=== PATIENT | male | born 1955 | race Caucasian/White ===

== ENCOUNTER 2017-10-29 09:00 | Inpatient (IN) | payer OTHER ==
[2017-10-29 09:28] VITALS: BMI 33.9
[2017-11-04] MEDS ORDERED: Midazolam HCl 2 mg/2 ml Vial ONE (07:23)
[2017-11-04] MEDS ORDERED: Ropivacaine 0.5% HCl/PF (150 MG/30 ML VIAL) ONE (07:24)
[2017-11-04] MEDS ORDERED: Bupivacaine 0.25% HCL 30 ML VIAL ONE (07:24)
[2017-11-04] MEDS ORDERED: Fentanyl 100 MCG/2 ML VIAL ONE ×4 (07:24→13:24)
[2017-11-04] MEDS ORDERED: CEFAZOLIN/Water 2 GM/20 ML SYRINGE ONE (08:09)
[2017-11-04] MEDS ORDERED: Zolpidem Tartrate 5 MG TAB PO PRN ×2 (08:50→09:21)
[2017-11-04] MEDS ORDERED: Ondansetron HCl/PF 4 MG/2 ML Vial IVP PRN ×3 (08:50→12:44)
[2017-11-04] MEDS ORDERED: traMADol HCl 50 MG TAB PO PRN ×3 (08:50→09:21)
[2017-11-04] MEDS ORDERED: Promethazine HCl 25 MG/ML VIAL IM PRN ×3 (08:50→12:44)
[2017-11-04] MEDS ORDERED: HYDROcodone/Acetaminophen 10/325 mg Tablet PO PRN ×3 (08:50→09:21)
[2017-11-04] MEDS ORDERED: Fentanyl 100 MCG/2 ML VIAL IV PRN (08:51)
[2017-11-04] MEDS ORDERED: diphenhydrAMINE 25 MG CAP PO PRN (09:21)
[2017-11-04] MEDS ORDERED: Acetaminophen 325 MG TAB PO PRN (09:21)
[2017-11-04] MEDS ORDERED: Acetaminophen 1,000 MG in Premix Bag 1 BAG IVPB SCH (09:30)
[2017-11-04] MEDS ORDERED: PROPOFOL 20 ML ONE ×2 (10:24→10:25)
[2017-11-04] MEDS ORDERED: Propofol 500 MG/50 ML VIAL ONE ×3 (10:24→12:12)
[2017-11-04] MEDS ORDERED: Bupivacaine/Epinephrine 0.25% 30 ML VIAL ONE (10:26)
[2017-11-04] MEDS ORDERED: Neomycin-Polymyxin 1 ML AMP ONE (10:26)
[2017-11-04] MEDS: Ketorolac Tromethamine 30 MG/ML VIAL IVP SCH ×5 (12:00→23:29)
[2017-11-04] MEDS ORDERED: PROPOFOL 200 MG/20 ML VIAL ONE (12:16)
[2017-11-04] MEDS ORDERED: Non-Formulary Item 1 EACH (Esomeprazole Magnesium [Nexium] 20 MG) PO PRN (12:33)
[2017-11-04] MEDS ORDERED: Promethazine HCl 25 MG/ML VIAL SLOW IVP PRN (12:44)
[2017-11-04] MEDS ORDERED: Tranexamic Acid 1,000 MG in Sodium Chloride 0.9% 100 ML IVPB SCH (12:45)
--- NOTE | 2017-11-04 14:04 | RAD ---
RIGHT KNEE TWO VIEWS: History: Total knee arthroplasty. Post op evaluation. FINDINGS/IMPRESSION: There are recent post-operative changes of total knee arthroplasty in good position and alignment. So ft tissue air and surgical clips are present. POS: SCOTTY
[2017-11-04] MEDS ORDERED: hydrALAZINE 20 MG/ML VIAL SLOW IVP PRN (14:50)
[2017-11-04] MEDS: Sodium Chloride 0.9% 1,000 ML IV SCH ×2 (15:26→20:12)
[2017-11-04] MEDS: CEFAZOLIN/Water 2 GM/20 ML SYRINGE SLOW IVP SCH ×2 (16:15→23:29)
[2017-11-04] MEDS: metFORMIN 500 MG TAB PO SCH (17:15)
[2017-11-04] MEDS: Aspirin 81 mg Enteric Coated Tablet PO SCH (20:13)
[2017-11-04] MEDS: Ferrous Gluconate 324 MG TAB PO SCH (20:14)
[2017-11-04] MEDS: Atorvastatin Calcium 10 MG TAB PO SCH (20:14)
[2017-11-04] MEDS: Senokot S 8.6-50 MG TAB PO SCH (20:14)
[2017-11-04] MEDS: Lisinopril 10 MG TAB PO SCH (20:15)
[2017-11-04] MEDS: HYDROcodone/Acetaminophen 10/325 mg Tablet PO PRN (20:15)
[2017-11-04] MEDS ORDERED: Lisinopril 10 MG TAB PO SCH (21:00)
[2017-11-04] MEDS: Bupivacaine 0.5% 50 ML in Sodium Chloride 0.9% 50 ML NERVE BLCK SCH (23:29)
[2017-11-05] MEDS: Ketorolac Tromethamine 30 MG/ML VIAL IVP SCH ×6 (03:41→21:19)
[2017-11-05] MEDS: Sodium Chloride 0.9% 1,000 ML IV SCH ×2 (04:58→14:31)
[2017-11-05 05:10] LABS: Hemoglobin 12.7 g/dL (14.0-18.0); Mean Corpuscular HGB CONC 33.8 g/dL (32.0-36.0); Mean Corpuscular Hemoglobin 31.6 pg (27.0-31.0); Mean Corpuscular Volume 93.5 fl (80.0-94.0); Mean Platelet Volume 6.6 fL (7.4-10.4); Platelet Count 207 thou/uL (130-400); RBC Distribution Width 11.2 % (11.5-14.5); Red Blood Cell (RBC) Count 4.03 mill/uL (4.70-6.10); White Blood Cell (WBC) Count 8.8 thou/uL (4.8-10.8)
[2017-11-05] MEDS: Senokot S 8.6-50 MG TAB PO SCH ×2 (08:14→21:20)
[2017-11-05] MEDS: Ferrous Gluconate 324 MG TAB PO SCH ×2 (08:14→21:20)
[2017-11-05] MEDS: metFORMIN 500 MG TAB PO SCH ×2 (08:14→18:06)
[2017-11-05] MEDS: Multivitamin W/ Minerals 1 TAB PO SCH (08:14)
[2017-11-05] MEDS: Aspirin 81 mg Enteric Coated Tablet PO SCH ×2 (08:14→21:21)
--- NOTE | 2017-11-05 10:01 | OP ---
DATE OF PROCEDURE: 11/04/2017 PREOPERATIVE DIAGNOSIS: Osteoarthritis, right knee. POSTOPERATIVE DIAGNOSIS: Osteoarthritis, right knee. PROCEDURE: Right total knee arthroplasty. ANESTHESIA: General. SURGEON: Dr. Tree Bray RN ASSESSMENT: HERNAN Beltrán. COMPLICATIONS: None. CONDITION: Good. ESTIMATED BLOOD LOSS: Minimal. DRAINS: None. TOURNIQUET: Per anesthesia. TECHNIQUE: Consent obtained. The patient was taken to the operating room and placed in supine posit ion. After adequate general anesthesia achieved, the patient's right knee was examined. He had flex ion up to 135 degrees, full extension. There was crepitus with motion, moderate effusion. Ligament exam was stable. Mild varus deformity. He was then positioned, prepped and draped in the usual ster ile fashion. Tourniquet placed to right upper thigh. Leg was elevated, exsanguinated, and tournique t inflated prior to incision. Standard midline vertical incision was made, extending to subcutaneous tissue exposing extensor mechanism. Medial parapatellar arthrotomy was performed. Patella subluxed laterally. The patient had advanced tricompartmental disease with areas of grade III and IV changes on the medial compartment, grade II and III lateral and patellofemoral. Using intramedullary guide, distal 5 degree valgus resection on the femur was performed using AP and epicondylar axis, proper ro tation, position, a size 7 cutting block was placed. Anterior, posterior chamfer cuts were completed for the size 7 evolution femur. The tibia was then subluxed anteriorly. Appropriate resection was performed using external guide. Menisci and cruciate ligaments debrided and flexion, extension gaps were then checked with the 10 mm spacer. Good balancing and alignment noted. Patella was then measu red and approximately 8 mm resection was performed, a 35 mm patella was medialized. The trial compon ents were then placed, 7 femur, 7 tibia, and 35 patella and put through range of motion with a 10 mm bearing surface. The baseplate was then marked and prepared with a broach. All surfaces were irriga maria g copiously, dried. Femur, tibia, and patella cemented. Excess cement removed and again trialed w ith the 10 mm bearing surface. This was chosen, snap fit. The knee was then irrigated copiously. A rthrotomy closed with #2 mersilene, #1 Vicryl, subq with 0 and 2-0 Vicryl, and skin with madison. St erile bulky dressing was applied and patient taken to recovery. Begin rehab protocol. Prognosis is good. HERNAN Beltrán was essential in the procedure. He has special training in orthopedic implant, surgic al techniques and retraction along with closure and transfer of the patient.
[2017-11-05] MEDS: HYDROcodone/Acetaminophen 10/325 mg Tablet PO PRN (12:59)
[2017-11-05] MEDS: Bupivacaine 0.5% 50 ML in Sodium Chloride 0.9% 50 ML NERVE BLCK SCH (13:07)
--- NOTE | 2017-11-05 19:52 | PDOC.PN ---
- Subjective Encounter Start Date: 11/05/17 Encounter Start Time: 19:51 Patient seen and examined for Med mngt. No new complaints. No overnight events. Pain controlled. - Objective MAR Reviewed: Yes Vital Signs & Weight: Vital Signs (12 hours) Temp Pulse Resp BP BP Pulse Ox 11/05/17 16:00 97.8 F 56 L 18 125/75 95 11/05/17 12:00 98.7 F 57 L 18 116/74 98 11/05/17 08:00 98.5 F 58 L 20 120/78 97 Weight Admit Weight 243 lb Weight 243 lb I&O: 11/04/17 11/05/17 11/06/17 06:59 06:59 06:59 Intake Total 1740 1110 Output Total 800 800 Balance 940 310 Result Diagrams: 11/05/17 04:42 Additional Labs: Laboratory Tests 03/26/16 10/29/17 08:49 12:11 Creatinine 0.81 Triglycerides 170 H Cholesterol 150 LDL Cholesterol, Calc 82 EKG Reviewed by me: Yes (SR) Phys Exam - Physical Examination Constitutional: NAD Respiratory: no wheezing, no rhonchi Cardiovascular: RRR, no rub Gastrointestinal: soft, non-tender, positive bowel sounds Musculoskeletal: no edema Neurological: moves all 4 limbs Dx/Plan (1) DM2 (diabetes mellitus, type 2) Status: Chronic Plan: Cont Metformin. No need for sliding scale. (2) HTN (hypertension) Code(s): I10 - ESSENTIAL (PRIMARY) HYPERTENSION Status: Chronic Plan: Cont Lisinopril (3) GERD (gastroesophageal reflux disease) Code(s): K21.9 - GASTRO-ESOPHAGEAL REFLUX DISEASE WITHOUT ESOPHAGITIS Status: Chronic Plan: Cont PPI (4) Obesity (BMI 30.0-34.9) Code(s): E66.9 - OBESITY, UNSPECIFIED Status: Chronic (5) Dyslipidemia Code(s): E78.5 - HYPERLIPIDEMIA, UNSPECIFIED Status: Chronic Plan: Cont Statins - Plan PT/OT, DVT proph w/SCDs Thank you for this consultation. Will follow. Review of Systems - Review of Systems Respiratory: negative: Cough, Dry, Shortness of Breath, Hemoptysis, SOB with Excertion, Pleuritic Pain, Sputum, Wheezing Cardiovascular: negative: chest pain, palpitations, orthopnea, paroxysmal nocturnal dyspnea, edema, light headedness, other Gastrointestinal: negative: Nausea, Vomiting, Abdominal Pain, Diarrhea, Constipation, Melena, Hematochezia, Other - Medications/Allergies Allergies/Adverse Reactions: Allergies Allergy/AdvReac Type Severity Reaction Status Date / Time No Known Allergies Allergy Verified 11/04/17 16:04 Medications: Current Medications Acetaminophen (Tylenol) 650 mg PO Q4H PRN PRN Reason: VALADEZ/ T > 101F; Mild Pain (1-3) Hydrocodone Bitart/Acetaminophen (Deloit 10/325) 1 tab PO Q4H PRN PRN Reason: Moderate Pain (4-6) Last Admin: 11/05/17 09:02 Dose: 1 tab Hydrocodone Bitart/Acetaminophen (Deloit 10/325) 2 tab PO Q4H PRN PRN Reason: Severe Pain (7-10) Last Admin: 11/05/17 12:59 Dose: 2 tab Aspirin (Ecotrin) 81 mg PO BID [facility] Last Admin: 11/05/17 08:14 Dose: 81 mg Atorvastatin Calcium (Lipitor) 10 mg PO HS [facility] Last Admin: 11/04/17 20:14 Dose: 10 mg Diphenhydramine HCl (Benadryl) 25 mg PO Q6H PRN PRN Reason: Itching Fentanyl (Sublimaze) 50 mcg IV Q1H PRN PRN Reason: BT PAIN Ferrous Gluconate (Fergon) 324 mg PO BID [facility] Last Admin: 11/05/17 08:14 Dose: 324 mg Hydralazine HCl (Apresoline) 10 mg SLOW IVP Q4H PRN PRN Reason: SBP Greater Than 180 Bupivacaine HCl 50 ml/ Sodium (Chloride) 100 mls @ 0 mls/hr NERVE BLCK INF [facility] PRN Reason: As Directed Last Admin: 11/05/17 13:07 Dose: 100 mls Sodium Chloride (Normal Saline 0.9%) 1,000 mls @ 100 mls/hr IV .Q10H [facility] Last Admin: 11/05/17 14:31 Dose: Not Given Iron/Minerals/Multivitamins (Theragran M) 1 tab PO DAILY [facility] Last Admin: 11/05/17 08:14 Dose: 1 tab Ketorolac Tromethamine (Toradol) 30 mg IVP Q6HR [facility] Stop: 11/06/17 06:01 Last Admin: 11/05/17 18:06 Dose: 30 mg Ketorolac Tromethamine (Toradol) 15 mg IVP Q8HR [facility] Stop: 11/06/17 14:01 Last Admin: 11/05/17 13:20 Dose: Not Given Lisinopril (Zestril) 10 mg PO HS [facility] Last Admin: 11/04/17 20:15 Dose: Not Given Metformin HCl (Glucophage) 500 mg PO BID[facility] Last Admin: 11/05/17 18:06 Dose: 500 mg Morphine Sulfate (Morphine) 2 mg IVP Q2H PRN PRN Reason: Moderate Pain (4-6) Morphine Sulfate (Morphine) 4 mg IVP Q2H PRN PRN Reason: Severe Pain (7-10) Ondansetron HCl (Zofran) 4 mg IVP Q6H PRN PRN Reason: Nausea/Vomiting Pantoprazole Sodium (Protonix) 40 mg PO DAILYPRN PRN PRN Reason: GERD Promethazine HCl (Phenergan) 12.5 mg IM Q4H PRN PRN Reason: Nausea/Vomiting Last Admin: 11/05/17 08:13 Dose: 12.5 mg Senna/Docusate Sodium (Senokot S) 2 tab PO BID [facility] Last Admin: 11/05/17 08:14 Dose: 2 tab Sodium Chloride (Flush - Normal Saline) 10 ml IVF PRN PRN PRN Reason: Saline Flush Tramadol HCl (Ultram) 100 mg PO Q6H PRN PRN Reason: Mild Pain (1-3) Zolpidem Tartrate (Ambien) 5 mg PO HSPRN PRN PRN Reason: Insomnia
[2017-11-05] MEDS: Atorvastatin Calcium 10 MG TAB PO SCH (21:20)
[2017-11-05] MEDS: Lisinopril 10 MG TAB PO SCH (21:21)
[2017-11-06] MEDS: Bupivacaine 0.5% 50 ML in Sodium Chloride 0.9% 50 ML NERVE BLCK SCH (00:56)
[2017-11-06] MEDS: HYDROcodone/Acetaminophen 10/325 mg Tablet PO PRN ×2 (00:56→09:18)
[2017-11-06] MEDS: Ketorolac Tromethamine 30 MG/ML VIAL IVP SCH ×3 (00:57→06:17)
[2017-11-06] MEDS: Sodium Chloride 0.9% 1,000 ML IV SCH (02:14)
[2017-11-06 05:07] LABS: Hemoglobin 12.5 g/dL (14.0-18.0); Mean Corpuscular HGB CONC 33.3 g/dL (32.0-36.0); Mean Corpuscular Volume 93.1 fl (80.0-94.0); Mean Platelet Volume 7.1 fL (7.4-10.4); Platelet Count 211 thou/uL (130-400); RBC Distribution Width 11.2 % (11.5-14.5); Red Blood Cell (RBC) Count 4.03 mill/uL (4.70-6.10); White Blood Cell (WBC) Count 9.2 thou/uL (4.8-10.8)
[2017-11-06 08:01] VITALS: BP 144/85; TEMP 98
[2017-11-06] MEDS ORDERED: FOLATE PO SCH (09:00)
[2017-11-06] MEDS ORDERED: Non-Formulary Item 1 EACH (Cholecalciferol (Vitamin D3) [Vitamin D3] 5,000 UNIT) PO SCH (09:00)
[2017-11-06] MEDS ORDERED: INTRINSIC FACT PO SCH (09:00)
[2017-11-06] MEDS ORDERED: VIT B12 PO SCH (09:00)
[2017-11-06] MEDS ORDERED: [UNRECOGNIZED DRUG - OTHER] PO SCH (09:00)
[2017-11-06] MEDS: metFORMIN 500 MG TAB PO SCH (09:02)
[2017-11-06] MEDS: Ferrous Gluconate 324 MG TAB PO SCH (09:03)
[2017-11-06] MEDS: Aspirin 81 mg Enteric Coated Tablet PO SCH (09:03)
[2017-11-06] MEDS: Multivitamin W/ Minerals 1 TAB PO SCH (09:04)
[2017-11-06] MEDS: Senokot S 8.6-50 MG TAB PO SCH (09:04)
--- NOTE | 2017-11-06 13:10 | PDOC.PN ---
- Subjective Encounter Start Date: 11/06/17 Encounter Start Time: 07:30 Patient iss een today, alert and oriented. Ready to get discharge. - Objective MAR Reviewed: Yes Vital Signs & Weight: Vital Signs (12 hours) Temp Pulse Resp BP Pulse Ox 11/06/17 08:00 98 F 55 L 16 93 L 11/06/17 07:38 98 F 55 L 16 144/85 H 93 L 11/06/17 04:00 98.2 F 58 L 16 129/71 95 Weight Admit Weight 243 lb Weight 243 lb I&O: 11/05/17 11/06/17 11/07/17 06:59 06:59 06:59 Intake Total 1740 1350 540 Output Total 800 2000 300 Balance 940 -650 240 Result Diagrams: 11/06/17 04:11 Phys Exam - Physical Examination HEENT: PERRLA, moist MMs Neck: no nodes, no JVD Respiratory: no wheezing, no rales Cardiovascular: RRR, no significant murmur Gastrointestinal: soft, non-tender Musculoskeletal: no edema Dx/Plan (1) DM2 (diabetes mellitus, type 2) Status: Chronic Comment: stba;e, continue Home Meds. (2) Dyslipidemia Code(s): E78.5 - HYPERLIPIDEMIA, UNSPECIFIED Status: Chronic Comment: continue Home emds. stbale. (3) GERD (gastroesophageal reflux disease) Code(s): K21.9 - GASTRO-ESOPHAGEAL REFLUX DISEASE WITHOUT ESOPHAGITIS Status: Chronic Comment: Asymptomatic, continue Home meds. (4) HTN (hypertension) Code(s): I10 - ESSENTIAL (PRIMARY) HYPERTENSION Status: Chronic Comment: at Goal. continue home meds (5) Obesity (BMI 30.0-34.9) Code(s): E66.9 - OBESITY, UNSPECIFIED Status: Chronic - Plan cont current plan of care, PT/OT, incentive spirometry, DVT proph w/SCDs * . Review of Systems - Review of Systems Constitutional: negative: fever, chills, sweats, weakness, malaise, other Eyes: negative: Pain, Vision Change, Conjunctivae Inflammation, Eyelid Inflammation, Redness, Other ENT: negative: Ear Pain, Ear Discharge, Nose Pain, Nose Discharge, Nose Congestion, Mouth Pain, Mouth Swelling, Throat Pain, Throat Swelling, Other Respiratory: negative: Cough, Dry, Shortness of Breath, Hemoptysis, SOB with Excertion, Pleuritic Pain, Sputum, Wheezing Cardiovascular: negative: chest pain, palpitations, orthopnea, paroxysmal nocturnal dyspnea, edema, light headedness, other Gastrointestinal: negative: Nausea, Vomiting, Abdominal Pain, Diarrhea, Constipation, Melena, Hematochezia, Other Genitourinary: negative: Dysuria, Frequency, Incontinence, Hematuria, Retention , Other - Medications/Allergies Allergies/Adverse Reactions: Allergies Allergy/AdvReac Type Severity Reaction Status Date / Time No Known Allergies Allergy Verified 11/04/17 16:04
== END 2017-11-06 11:30 | disposition home or self-care (01) | DRG 470 ==
LOC: SJJU 11-04 06:52
PROVIDERS: ADMIT Orthopaedic Surgery; ATTEND Orthopaedic Surgery
PROC: 0SRC0J9 Replacement of Right Knee Joint with Synthetic Substitute, Cemented, Open Approach (ICD-10-PCS; principal; 2017-11-04)
DX: M17.11 Unilateral primary osteoarthritis, right knee (principal); E11.9 Type 2 diabetes mellitus without complications; E78.5 Hyperlipidemia, unspecified; K21.9 Gastro-esophageal reflux disease without esophagitis; I10 Essential (primary) hypertension; E66.9 Obesity, unspecified; Z68.33 Body mass index [BMI] 33.0-33.9, adult
CPT/HCPCS: 36415; 85027; C1713; C1776; G8978-GP-CJ; G8979-GP-CI; J1885; J2250; J2550; J2704; J2795; J3010; J3370; J3490; J7050; S0020

== ENCOUNTER 2017-10-29 09:32 | Outpatient (CLI) | payer OTHER ==
[2017-10-29 12:40] LABS: PTT 28.6 SEC (22.9-36.1); Prothrombin Time 13.2 SEC (12.0-14.7)
[2017-10-29 12:43] LABS: Hemoglobin 14.9 g/dL (14.0-18.0); Mean Corpuscular HGB CONC 31.9 g/dL (32.0-36.0); Mean Corpuscular Hemoglobin 29.9 pg (27.0-31.0); Mean Corpuscular Volume 93.6 fl (80.0-94.0); Mean Platelet Volume 6.7 fL (7.4-10.4); Platelet Count 273 thou/uL (130-400); RBC Distribution Width 11.2 % (11.5-14.5); White Blood Cell (WBC) Count 5.9 thou/uL (4.8-10.8)
[2017-10-29 12:59] LABS: Anion Gap 11 mmol/L (10-20); BUN (Urea Nitrogen) 13 mg/dL (8.4-25.7); Calc. Creatinine Clearance 0 mL/min (70-130); Calcium 9.5 mg/dL (7.8-10.44); Carbon Dioxide 26 mmol/L (23-31); Chloride 103 mmol/L (98-107); Estimated GFR-MDRD Greater than 90; Glucose 98 mg/dL (80-115); Potassium 4.4 mmol/L (3.5-5.1); Sodium 136 mmol/L (136-145)
== END 2017-10-29 09:33 | disposition home or self-care (01) ==
LOC: LABBT 09:32
PROVIDERS: ATTEND Orthopaedic Surgery
DX: Z01.818 Encounter for other preprocedural examination (principal); M17.11 Unilateral primary osteoarthritis, right knee
CPT/HCPCS: 80048; 85027; 85610; 85730; 86850; 86900; 86901; 87081; 93005; 93010

== ENCOUNTER 2018-04-25 15:03 | Inpatient (IN) | payer OTHER ==
[2018-04-25 15:35] LABS: #Basophils 0.1 thou/uL (0.0-0.2); #Eosinphils 0.2 thou/uL (0.0-0.7); #Lymphocytes 2.9 thou/uL (1.20-3.40); #Neutrophils 6.5 thou/uL (1.40-6.50); %Basophils 0.5 % (0.0-1.0); %Eosinophils 1.9 % (0.0-10.0); %Lymphocytes 27.1 % (21.0-51.0); %Monocytes 9.3 % (0.0-10.0); %Neutrophils 61.2 % (42.0-75.0); Hemoglobin 13.1 g/dL (14.0-18.0); Mean Corpuscular Hemoglobin 31.6 pg (27.0-31.0); Mean Corpuscular Volume 92.9 fL (78.0-98.0); Mean Platelet Volume 7.1 fL (7.4-10.4); Platelet Count 242 thou/uL (130-400); RBC Distribution Width 11.4 % (11.5-14.5); Red Blood Cell (RBC) Count 4.14 mill/uL (4.70-6.10); White Blood Cell (WBC) Count 10.5 thou/uL (4.8-10.8)
[2018-04-25 16:09] LABS: CKMB 0.5 ng/mL (0-6.6); Troponin I Less than 0.010 ng/mL (< 0.028)
[2018-04-25 16:12] LABS: ALT (SGPT) 11 U/L (8-55); AST (SGOT) 12 U/L (5-34); Albumin 3.7 g/dL (3.4-4.8); Alkaline Phosphatase 49 U/L (40-150); Anion Gap 12 mmol/L (10-20); BUN (Urea Nitrogen) 12 mg/dL (8.4-25.7); Bilirubin, Total 0.8 mg/dL (0.2-1.2); CK (CPK) 31 U/L (30-200); Calc. Creatinine Clearance 0 mL/min (70-130); Calcium 9.3 mg/dL (7.8-10.44); Carbon Dioxide 29 mmol/L (23-31); Chloride 100 mmol/L (98-107); Estimated GFR-MDRD Greater than 90; Globulin 3.1 g/dL (2.4-3.5); Glucose 110 mg/dL (80-115); Potassium 4.6 mmol/L (3.5-5.1); Protein, Total 6.8 g/dL (5.8-8.1); Sodium 136 mmol/L (136-145)
[2018-04-25] MEDS ORDERED: Iopamidol 370 76% 100 ML VIAL ONE (16:20)
[2018-04-25] MEDS ORDERED: Ondansetron PF 4 MG/2 ML Vial ONE (16:36)
[2018-04-25] MEDS ORDERED: Morphine 4 MG/ML VIAL ONE (16:36)
--- NOTE | 2018-04-25 16:41 | RAD ---
PORTABLE CHEST ONE VIEW: 04/25/18 at 3:55 p.m. HISTORY: Sternal chest pain, shortness of breath. FINDINGS/IMPRESSION: The heart size is borderline. Plates of atelectatic change are seen in the lower lung patrick. No foca l areas of consolidation, pneumothoraces, grabiel pulmonary edema or pleural effusions are identified. POS: H
[2018-04-25] MEDS ORDERED: Heparin 25,000 units/D5W 500 ML IV SCH (17:45)
[2018-04-25] MEDS ORDERED: Heparin 10,000 UNITS/ 10 ML VIAL SLOW IVP SCH (17:45)
[2018-04-25] MEDS ORDERED: Heparin 1,000 UNITS/ML VIAL ONE (17:47)
[2018-04-25] MEDS ORDERED: Heparin 25,000 units/D5W 500 ML ONE (17:50)
--- NOTE | 2018-04-25 19:01 | PDOC.LDHP ---
Labor and Delivery H&P Allergies/Adverse Reactions: Allergies Allergy/AdvReac Type Severity Reaction Status Date / Time No Known Allergies Allergy Verified 11/04/17 16:04
--- NOTE | 2018-04-25 19:03 | PDOC.FPRHP ---
- History of Present Illness Chief Complaint: SOB and chest pain History of Present Illness: The patient is a 62YOM w/ a PMH significant for DMII & HTN as well as a recent left TKR on 04/22, who presented to the ED with a chief complaint of SOB and chest pain that he reportedly experienced for about 1 hour around 10:30- 11 AM. The patient reported that he was sitting at home this morning and had sudden onset sharp, central, non-radiating chest pain with associated SOB, diaphoresis, and nausea. He reports no aggravating or alleviating factors although he did try taking Tums as he thought it might have been gas pain. However, the tums did not help so his called EMS to come an evaluate him. The patient says that his symptoms persisted for about an hour and then resolved spontaneously and his stated that EMS was able to determine that the pain was not cardiac in nature. However, the patient decided to call his orthopedic surgeon, Dr. Bray to get advise on what to do and Dr. Bray recommended that the patient proceed to the ED for further evaluation. The patient denied any associated weakness, numbness, syncope, or palpitations. He also denied any worsening left leg swelling or pain. ED Course: ED: 4mg zofran and morphine IV, 324mg ASA, 80mg/kr dose of IV heparin, 1L of NS ; started on heparin drip - Allergies/Adverse Reactions Allergies Allergy/AdvReac Type Severity Reaction Status Date / Time No Known Allergies Allergy Verified 11/04/17 16:04 - Home Medications Medication Instructions Recorded Confirmed Type Atorvastatin Calcium 10 mg PO HS 10/29/17 04/25/18 History Cholecalciferol (Vitamin D3) 5,000 unit PO DAILY 10/29/17 04/25/18 History [Vitamin D3] Lisinopril 10 mg PO DAILY 10/29/17 04/25/18 History metFORMIN [Glucophage] 500 mg PO BID-WM 10/29/17 04/25/18 History Vit B12/Intrinsic Fact/Folate 1 tablet PO DAILY 11/04/17 04/25/18 History [Intrinsi Q52-Eflpiv] HYDROcodone/Acetaminophen [[place]ependence 1 - 2 tab PO Q6H PRN #40 tablet 11/05/17 Rx 7.5-325 Tablet] Aspirin [Aspirin Chewable Tablet] 81 mg PO BID 04/25/18 04/25/18 History Methylsulfonylmethane [MSM] 1,000 mg PO BID 04/25/18 04/25/18 History Ondansetron HCl [Zofran] 8 mg PO BID 04/25/18 04/25/18 History - History PMHx: DMII, HTN PSHx: right TKR on 11/05/17 & left TKR on 04/22/18 FHx: Mother- CAD Father- DMII & CAD Brother - from an [place] at age 67 Social: Lives at home in [place] with his . Drinks socially. Denies any tobacco or drug use. - Review of Systems General: denies: fever/chills, weight/appetite/sleep changes Eyes: denies: eye pain, vision changes ENT: reports: other (no sore throat). denies: nasal congestion Respiratory: reports: shortness of breath. denies: cough, congestion Cardiovascular: reports: chest pain. denies: palpitation, edema Gastrointestinal: reports: nausea. denies: vomiting, diarrhea, constipation, abdominal pain Genitourinary: reports: other (no frequency). denies: dysuria Skin: denies: rashes, itching Musculoskeletal: reports: pain. denies: tenderness, swelling Neurological: denies: numbness, syncope, weakness Psychological: denies: anxiety, depression - Vital signs BP: 112/67 HR: 78 RR: 16 Tmax: 98F Pox: 98% on RA Wt: 113 kg - Physical Exam Constitutional: NAD, awake, alert and oriented, well developed HEENT: normocephalic and atraumatic, conjunctiva clear, grossly normal vision, grossly normal hearing Neck: supple, FROM Chest: no-tender to palpation Heart: RRR, normal S1/S2, no murmurs/rubs/gallops, pulses present, no edema Lungs: CTAB, no respiratory distress, good air movement, no rales/rhonchi, no wheezing Abdomen: soft, non-tender, bowel sounds present Musculoskeletal: normal structure Neurological: no focal deficit, other (swelling in LLE compared to the right but no exquisite TTP; neurovascularly intact distal to surgical incision area) -Neurological: symmetric facial movements Skin: no rash/lesions, good turgor Heme/Lymphatic: no unusual bruising or bleeding Psychiatric: normal mood and affect, good judgment and insight, intact recent and remote memory FMR H&P: Results - Labs Result Diagrams: 04/26/18 05:34 04/25/18 15:27 Lab results: WBC 10.5 thou/uL (4.8-10.8) 04/25/18 15:27 Hgb 13.1 g/dL (14.0-18.0) L 04/25/18 15:27 Hct 38.4 % (42.0-52.0) L 04/25/18 15:27 MCV 92.9 fL (78.0-98.0) 04/25/18 15:27 Plt Count 242 thou/uL (130-400) 04/25/18 15:27 Neutrophils % 61.2 % (42.0-75.0) 04/25/18 15:27 Sodium 136 mmol/L (136-145) 04/25/18 15:27 Potassium 4.6 mmol/L (3.5-5.1) 04/25/18 15:27 Chloride 100 mmol/L (98-107) 04/25/18 15:27 Carbon Dioxide 29 mmol/L (23-31) 04/25/18 15:27 BUN 12 mg/dL (8.4-25.7) 04/25/18 15:27 Creatinine 0.85 mg/dL (0.6-1.3) 04/25/18 15:27 Glucose 110 mg/dL (80-115) 04/25/18 15:27 Calcium 9.3 mg/dL (7.8-10.44) 04/25/18 15:27 Total Bilirubin 0.8 mg/dL (0.2-1.2) 04/25/18 15:27 AST 12 U/L (5-34) 04/25/18 15:27 ALT 11 U/L (8-55) 04/25/18 15:27 Alkaline Phosphatase 49 U/L (40-150) 04/25/18 15:27 Creatine Kinase 31 U/L (30-200) 04/25/18 15:27 CK-MB (CK-2) 0.5 ng/mL (0-6.6) 04/25/18 15:27 Serum Total Protein 6.8 g/dL (5.8-8.1) 04/25/18 15:27 Albumin 3.7 g/dL (3.4-4.8) 04/25/18 15:27 - Radiology Interpretation CT scan - chest Status: report reviewed by me FMR H&P: A/P - Problem List (1) Pulmonary emboli Current Visit: Yes Status: Acute Code(s): I26.99 - OTHER PULMONARY EMBOLISM WITHOUT ACUTE COR PULMONALE Qualifiers: Chronicity: acute (2) Deep vein thrombophlebitis of right leg Current Visit: Yes Status: Acute Code(s): I80.201 - PHLBTS AND THOMBOPHLB OF UNSP DEEP VESSELS OF R LOW EXTREM (3) DM2 (diabetes mellitus, type 2) Current Visit: Yes Status: Chronic Comment: stba;e, continue Home Meds. (4) HTN (hypertension) Current Visit: Yes Status: Chronic Code(s): I10 - ESSENTIAL (PRIMARY) HYPERTENSION Comment: at Goal. continue home meds (5) Obesity (BMI 30.0-34.9) Current Visit: Yes Status: Chronic Code(s): E66.9 - OBESITY, UNSPECIFIED (6) Dyslipidemia Current Visit: Yes Status: Chronic Code(s): E78.5 - HYPERLIPIDEMIA, UNSPECIFIED Comment: continue Home emds. stbale. - Plan 62YO gentleman with a recent left TKR on 04/22, DMII, & HTN who presented to the ED after an hour long episode of chest pain and SOB earlier today who was found to have DVTs in his left superficial femoral and popliteal veins & pulmonary emboli in his B/L upper lung lobes and left lower lobe as well on U/S and chest CTA. Pulmonary Emboli 2/2 left DVTs: - DVTs in left superficial femoral and popliteal veins found on U/S of LLE & PEs in B/L upper lung lobes as well as LLL on CTA of chest. - S/p Heparin bolus in the ED. Heparin drip was also started in the ED at a rate of 40.7mL or 2,000 units/hour. - Will continue on heparin drip overnight and consider transitioning to NOAC in the AM or on Saturday. - Will continue compression stocking in RLE. DMII: - Aware, will resume home meds. - Will also start on mild SSI and get ACHS accuchecks. - CC diet. HTN: - Aware, will resume home meds. HLD: - Aware, will resume home meds. h/o recent left TKR: - Will resume home pain regimen as prescribed by patient's orthopedist, Dr. Bray. - Will resume zofran as well for nausea 2/2 pain meds. FMR H&P: Upper Level - Pertinent history 62 yo M with PMHx DM, HTN who presented to ED POD#3 from TKR with acute onset shortness of breath. He had been feeling well from surgery apart form expected post op pain and was sitting comfortably today when he suddenly had central chest pain and shortness of breath. He thought it may be heartburn and took some tums and the pain resolved after approximately an hour. By that time they had called EMS who performed EKG which they were told was normal and gave them the option for a ride to hospital or to drive separately. They called Dr. Bray's office and he advised them to go directly to ER. - Pertinent findings EKG NSR CTA + partially occlusive thrombus in RUL, JASON, LLL LLE doppler + nonocclusive DVT in L superficial femoral vein and popliteal vein VSS Gen: awake, alert, oriented HEENT: atraumatic, normocephalic CV: RRR, no murmur noted, pulses 1+ throughout RESP: CTAB ABD: soft, nontender, nondistended, normoactive bowel sounds LLE: bandage from mid-thigh to mid-long without drainage, diffuse nonpitting edema of LLE - Plan Date/Time: 04/25/18 1903 62 yo M with PMHx DM, HTN and recent L TKR on 04/22 found to have DVT/PE 1. BL PE: Heparin bolus given in ED. Will continue heparin drip. Monitor on telemetry. Cardiac enzymes negative. Consider transition ton NOAC. Compression stocking on RLE. 2. DVT: Same mgmt as #1 3. POD #3: Dr. Bray aware patient is here 4. HTN: Home meds 5. T2DM: Home meds, mild SSI, accuchecks I, Netta Hutchinson MD, PGY-3, have evaluated this patient and agree with findings/ plan as outlined by trestle mainternance laborer resident. Pertinent changes/additions are listed here. Attending Addendum - Attending Addendum Date/Time: 04/25/18 356 I personally evaluated the patient and discussed the management with Dr. Clark. I agree with the History, Examination, Assessment and Plan documented above with any addition or exceptions noted below. The patient presented with left lower extremity swelling and chest pain following left knee replacement 3 days prior. He is found to have LLE DVT and bilateral PE's. Patient willl remain on heparin drip overnight. Pt will have PT/OT continued. Continue home meds. Not requiring oxygen in the ER.
[2018-04-25 19:08] LABS: Troponin I Less than 0.010 ng/mL (< 0.028)
--- NOTE | 2018-04-25 19:38 | CT ---
CTA OF THE THORAX UTILIZING IV CONTRAST AND 3D REFORMATTED IMAGIN04/25/18 INDICATION: Substernal chest pain. FINDINGS: There is partially occlusive thrombus within the lobar and segmental branches left upper lobe, left l ower lobe and right upper lobe. There is no evidence of heart stain. There is small bilateral pleural effusion, bibasilar atelectasis. There is wall thickening involving the mid to distal esophagus. No pneumothorax is evident. No confluent air space opacity is noted. No lymphadenopathy is evident. Adre nal glands appear within normal limits. The visualized pancreas and spleen appear within normal limit s. The visualized aspects of the liver appear within normal limits. Heart and great vessels appear wi thin normal limits. Left vertebral artery originates from the aortic arch which is a normal variant. Mild vascular calcification is seen involving the thoracic aorta. No acute osseous abnormality is evident. IMPRESSION: Positive CTA PE examination with partially occlusive thrombus seen within the right upper lobe, left upper lobe, left lower lobe. Findings called to Dr. Telles at 5:08 p.m. on 04/25/18. Small bilateral pleural effusions and bibasilar atelectasis. Coronary artery and thoracic aorta calcifications. Mild wall thickening involving the mid to distal esophagus may be related to underdistention; however , esophagitis cannot be entire excluded. After patient's clinical issues resolve, a followup upper GI or endoscopy may be helpful for additional characterization. Code CR POS: SCOTTY
--- NOTE | 2018-04-25 19:58 | ULT ---
LEFT LOWER EXTREMITY VENOUS ULTRASOUND: COMPARISON: None. HISTORY: Left lower extremity pain and edema. TECHNIQUE: Multiplanar lees scale and color doppler images were obtained in a left lower extremity venous ultras ound. Spectral analysis of the doppler waveforms were performed. FINDINGS: There is nonocclusive thrombus visualized within the left popliteal vein and distal superficial femo ral vein. No thrombus is seen in the common femoral vein or proximal superficial femoral vein. The pr ofunda femoral vein is patent. The posterior tibial vein and greater saphenous vein are patent. IMPRESSION: Nonocclusive DVT in the superficial femoral vein and popliteal vein as above. POS: RONNY
[2018-04-25 21:04] LABS: INR-International Normal Ratio 1.1; PTT 31.1 SEC (22.9-36.1); Prothrombin Time 13.9 SEC (12.0-14.7)
[2018-04-25] MEDS ORDERED: Insulin Regular 300 UNITS/3 ML VIAL SC PRN (21:48)
[2018-04-25] MEDS ORDERED: Dextrose 5% in Water 1,000 ML IV PRN (21:48)
[2018-04-25] MEDS ORDERED: Dextrose 50% Abboject 50 ML SYRINGE SLOW IVP PRN (21:48)
[2018-04-25] MEDS ORDERED: HYDROcodone/Acetaminophen 7.5/325 mg Tablet PO PRN (21:50)
[2018-04-25 22:26] LABS: Troponin I Less than 0.010 ng/mL (< 0.028)
[2018-04-25] MEDS: Ondansetron ODT 4 MG TAB PO PRN (22:45)
[2018-04-25 23:07] VITALS: BMI 35.2
[2018-04-25 23:57] LABS: Hemoglobin A1c 5.3 % (4.0-6.0)
[2018-04-26] MEDS ORDERED: HYDROcodone/Acetaminophen 7.5/325 mg Tablet PO PRN (00:32)
[2018-04-26] MEDS: Ondansetron ODT 4 MG TAB PO PRN ×4 (04:09→22:28)
[2018-04-26] MEDS: HYDROcodone/Acetaminophen 7.5/325 mg Tablet PO PRN ×4 (04:32→22:27)
--- NOTE | 2018-04-26 05:37 | PDOC.FM ---
- Subjective Subjective: Pt reports significant pain this morning. He states that the hydrocodone helps his pain some but states that IV morphine has worked better in the ER. He denies chest pain this morning and denies SOB or dyspnea today. Pt. states that his mother took xarelto, threw a clot to her eye, and is blind in that eye. They express concern for using xarelto as anticoagulation. - Objective MAR Reviewed: Yes Vital Signs & Weight: Vital Signs (12 hours) Temp Pulse Resp BP Pulse Ox 04/26/18 04:00 97.9 F 72 19 120/72 95 04/26/18 00:05 93 L 04/26/18 00:00 99.1 F 83 18 112/64 94 L 04/25/18 20:00 97 04/25/18 19:58 99.7 F H 79 18 117/71 97 Weight Weight 114.362 kg Result Diagrams: 04/26/18 05:34 04/25/18 15:27 <Yordan Crawford - Last Filed: 04/26/18 11:27> - Objective Vital Signs & Weight: Vital Signs (12 hours) Temp Pulse Pulse Pulse Pulse Resp BP 04/26/18 12:25 74 100 111 H 04/26/18 12:00 99.4 F 77 16 04/26/18 08:48 100/70 04/26/18 07:40 04/26/18 07:39 97.9 F 80 20 04/26/18 04:00 97.9 F 72 19 BP BP BP BP Pulse Ox Pulse Ox 04/26/18 12:25 102/64 96/62 76/58 L 96 04/26/18 12:00 102/62 96 04/26/18 08:48 04/26/18 07:40 98 04/26/18 07:39 100/70 98 04/26/18 04:00 120/72 95 Weight Weight 114.362 kg I&O: 04/25/18 04/26/18 04/27/18 06:59 06:59 06:59 Intake Total 1080 Output Total 450 Balance 630 Result Diagrams: 04/26/18 05:34 04/25/18 15:27 <Katelyn Rodriguez - Last Filed: 04/26/18 14:26> Phys Exam - Physical Examination Constitutional: NAD HEENT: moist MMs Neck: no JVD Respiratory: no wheezing, clear to auscultation bilateral Cardiovascular: RRR, no significant murmur Gastrointestinal: soft, non-tender, no distention, positive bowel sounds Musculoskeletal: edema present (mild unilateral edema in left leg.) Dressing on TKR is in place, movement is limited in left leg Normal movement in right Neurological: non-focal, moves all 4 limbs Psychiatric: normal affect, A&O x 3 Skin: cap refill <2 seconds <Yordan Crawford - Last Filed: 04/26/18 11:27> Dx/Plan (1) Deep vein thrombophlebitis of right leg Code(s): I80.201 - PHLBTS AND THOMBOPHLB OF UNSP DEEP VESSELS OF R LOW EXTREM Status: Acute (2) Pulmonary emboli Code(s): I26.99 - OTHER PULMONARY EMBOLISM WITHOUT ACUTE COR PULMONALE Status : Acute Qualifiers: Chronicity: acute (3) DM2 (diabetes mellitus, type 2) Status: Chronic (4) Dyslipidemia Code(s): E78.5 - HYPERLIPIDEMIA, UNSPECIFIED Status: Chronic (5) HTN (hypertension) Code(s): I10 - ESSENTIAL (PRIMARY) HYPERTENSION Status: Chronic (6) Obesity (BMI 30.0-34.9) Code(s): E66.9 - OBESITY, UNSPECIFIED Status: Chronic - Plan Plan: This is a 62 yo male with a pmh of left TKR on 04/22, DM II, and HTN Pulmonary Emboli 2/2 right DVTs -Left DVTs in femoral and popliteal veins, PE in B/L upper lobe and LLL on CTA -Pt. has received Heparin drip from the time of arrival. We are stopping heparin and starting eliquis -Continue Stocking compression in RLE. -PT/OT consult today DMII -Continue home meds -Contine SSI and ACHS accuchecks -CC diet HTN -Continue home meds HLD -Continue home meds Left TKR -Continue home pain medications as prescribed by pt's orthopedist, Dr. Bray -We are adding tylenol 325 q6hr for addition pain coverage. -Continue zofran for nausea induced by pain medications <Yordan Crawford - Last Filed: 04/26/18 11:27> (1) Pulmonary emboli Code(s): I26.99 - OTHER PULMONARY EMBOLISM WITHOUT ACUTE COR PULMONALE Status : Acute Qualifiers: Chronicity: acute (2) Deep vein thrombophlebitis of right leg Code(s): I80.201 - PHLBTS AND THOMBOPHLB OF UNSP DEEP VESSELS OF R LOW EXTREM Status: Acute (3) DM2 (diabetes mellitus, type 2) Status: Chronic (4) HTN (hypertension) Code(s): I10 - ESSENTIAL (PRIMARY) HYPERTENSION Status: Chronic (5) Obesity (BMI 30.0-34.9) Code(s): E66.9 - OBESITY, UNSPECIFIED Status: Chronic (6) Dyslipidemia Code(s): E78.5 - HYPERLIPIDEMIA, UNSPECIFIED Status: Chronic <Katelyn Rodriguez - Last Filed: 04/26/18 14:26> Attending Addendum - Attending Addendum Date/Time: 04/26/18 [id number] I personally evaluated the patient and discussed the management with Dr. Crawford. I agree with the History, Examination, Assessment and Plan documented above with any addition or exceptions noted below. Patient has done well. OT has already seen the patient. He remained on heparin overnight. Will transition to eliquis today. <Katelyn Rodriguez - Last Filed: 04/26/18 14:26>
[2018-04-26 06:01] LABS: Platelet Count 245 thou/uL (130-400)
[2018-04-26 06:22] LABS: PTT 138.8 SEC (22.9-36.1)
[2018-04-26] MEDS: Morphine 2 MG/ML SYRINGE SLOW IVP PRN ×2 (08:24→12:28)
[2018-04-26] MEDS: Lisinopril 10 MG TAB PO SCH (08:48)
[2018-04-26] MEDS: metFORMIN 500 MG TAB PO SCH ×2 (08:48→16:28)
[2018-04-26] MEDS: Folic Acid/Vit B Comp W-C PO SCH (08:48)
[2018-04-26] MEDS: Acetaminophen 325 MG TAB PO SCH ×2 (11:55→16:28)
[2018-04-26] MEDS ORDERED: Apixaban 5 MG TAB PO SCH (12:00)
[2018-04-26 20:05] LABS: Hemoglobin 12.4 g/dL (14.0-18.0); Platelet Count 273 thou/uL (130-400)
[2018-04-26] MEDS ORDERED: Atorvastatin Calcium 10 MG TAB PO SCH (21:00)
[2018-04-26] MEDS: Apixaban 5 MG TAB PO SCH (21:07)
[2018-04-27] MEDS: Morphine 2 MG/ML SYRINGE SLOW IVP PRN (04:05)
[2018-04-27] MEDS: HYDROcodone/Acetaminophen 7.5/325 mg Tablet PO PRN (05:10)
[2018-04-27] MEDS: Acetaminophen 325 MG TAB PO SCH ×4 (05:11→17:14)
[2018-04-27] MEDS: Ondansetron ODT 4 MG TAB PO PRN ×2 (05:19→17:19)
--- NOTE | 2018-04-27 05:23 | PDOC.FM ---
- Subjective Subjective: Pt. states he did well yesterday pain sherman. He did report some breakthrough pain overnight. This morning he is motivated to be home. He denies any chest pain, sob, abdominal pain, or nausea. He states that the pain in his knee is a little better. - Objective MAR Reviewed: Yes Vital Signs & Weight: Vital Signs (12 hours) Temp Pulse Resp BP Pulse Ox 04/27/18 03:21 98.8 F 72 18 110/63 96 04/26/18 23:13 99.2 F 82 18 112/64 95 04/26/18 20:05 98.6 F 77 16 104/67 95 Weight Weight 114.362 kg I&O: 04/25/18 04/26/18 04/27/18 06:59 06:59 06:59 Intake Total 1080 Output Total 450 Balance 630 Result Diagrams: 04/27/18 05:01 04/26/18 19:58 <Yordan Crawford - Last Filed: 04/27/18 09:37> - Objective Vital Signs & Weight: Vital Signs (12 hours) Temp Pulse Pulse Pulse Pulse Resp BP 04/27/18 11:04 98.4 F 78 16 04/27/18 10:00 89 82 66 112/62 04/27/18 08:07 97.9 F 65 16 BP BP BP Pulse Ox 04/27/18 11:04 98/61 98 04/27/18 10:00 93/54 L 106/56 L 04/27/18 08:07 116/70 97 Weight Weight 114.714 kg I&O: 04/26/18 04/27/18 04/28/18 06:59 06:59 06:59 Intake Total 1500 Output Total 950 Balance 550 Result Diagrams: 04/27/18 05:01 04/26/18 19:58 <Katelyn Rodriguez - Last Filed: 04/27/18 15:30> Phys Exam - Physical Examination Constitutional: NAD HEENT: moist MMs Neck: no JVD Respiratory: no wheezing, clear to auscultation bilateral Cardiovascular: RRR, no significant murmur Gastrointestinal: soft, non-tender, no distention, positive bowel sounds Musculoskeletal: pulses present, edema present (mild edema on left leg) Neurological: non-focal, moves all 4 limbs Psychiatric: normal affect, A&O x 3 Skin: cap refill <2 seconds <Yordan Crawford - Last Filed: 04/27/18 09:37> Dx/Plan (1) Deep vein thrombophlebitis of right leg Code(s): I80.201 - PHLBTS AND THOMBOPHLB OF UNSP DEEP VESSELS OF R LOW EXTREM Status: Acute (2) Pulmonary emboli Code(s): I26.99 - OTHER PULMONARY EMBOLISM WITHOUT ACUTE COR PULMONALE Status : Acute Qualifiers: Chronicity: acute (3) DM2 (diabetes mellitus, type 2) Status: Chronic (4) Dyslipidemia Code(s): E78.5 - HYPERLIPIDEMIA, UNSPECIFIED Status: Chronic (5) HTN (hypertension) Code(s): I10 - ESSENTIAL (PRIMARY) HYPERTENSION Status: Chronic (6) Obesity (BMI 30.0-34.9) Code(s): E66.9 - OBESITY, UNSPECIFIED Status: Chronic - Plan Plan: This is a 62 yo male with a pmh of left TKR on 04/22, DM II, and HTN Pulmonary Emboli 2/2 right DVTs -Left DVTs in femoral and popliteal veins, PE in B/L upper lobe and LLL on CTA -We are continuing eliquis -Continue Stocking compression in RLE. -PT/OT consult today DMII -Continue home meds -Contine SSI and ACHS accuchecks -CC diet HTN -Continue home meds HLD -Continue home meds Left TKR -We are changing his pain med to norco 10 q6hr to provide relief -We are adding tylenol 325 q6hr for addition pain coverage. -We are adding lyrica to provide additional pain coverage. He states gabapentin bothered his stomach significantly in the past -Continue zofran for nausea induced by pain medications Pt will likely be able to go home later this afternoon. <Yordan Crawford - Last Filed: 04/27/18 09:37> (1) Pulmonary emboli Code(s): I26.99 - OTHER PULMONARY EMBOLISM WITHOUT ACUTE COR PULMONALE Status : Acute Qualifiers: Chronicity: acute (2) Deep vein thrombophlebitis of right leg Code(s): I80.201 - PHLBTS AND THOMBOPHLB OF UNSP DEEP VESSELS OF R LOW EXTREM Status: Acute (3) DM2 (diabetes mellitus, type 2) Status: Chronic (4) HTN (hypertension) Code(s): I10 - ESSENTIAL (PRIMARY) HYPERTENSION Status: Chronic (5) Obesity (BMI 30.0-34.9) Code(s): E66.9 - OBESITY, UNSPECIFIED Status: Chronic (6) Dyslipidemia Code(s): E78.5 - HYPERLIPIDEMIA, UNSPECIFIED Status: Chronic <Katelyn Rodriguez - Last Filed: 04/27/18 15:30> Attending Addendum - Attending Addendum Date/Time: 04/27/18728 I personally evaluated the patient and discussed the management with Dr. Crawford. I agree with the History, Examination, Assessment and Plan documented above with any addition or exceptions noted below. The patient is doing well since transitioning to eliquis. He continues to have pain in the left leg. Will adjust pain meds and likely d/c home. <Katelyn Rodriguez - Last Filed: 04/27/18 15:30>
[2018-04-27 05:50] LABS: Platelet Count 276 thou/uL (130-400)
[2018-04-27] MEDS: metFORMIN 500 MG TAB PO SCH ×2 (08:11→17:15)
[2018-04-27] MEDS: Apixaban 5 MG TAB PO SCH (08:12)
[2018-04-27] MEDS: Lisinopril 10 MG TAB PO SCH (08:13)
[2018-04-27] MEDS: Folic Acid/Vit B Comp W-C PO SCH (08:13)
[2018-04-27] MEDS ORDERED: Pregabalin 75 MG CAP PO SCH (09:00)
[2018-04-27] MEDS: HYDROcodone/Acetaminophen 10/325 mg Tablet PO SCH ×2 (11:02→17:14)
[2018-04-27 11:05] VITALS: TEMP 98.4
[2018-04-27 16:11] VITALS: BP 109/68
--- NOTE | 2018-04-30 09:38 | DIS ---
DATE OF ADMISSION: 04/25/2018 DATE OF DISCHARGE: 04/27/2018 RESIDENT: Yordan Crawford DO. ADMITTING ATTENDING: Katelyn Rodriguez MD. DISCHARGE ATTENDING: Katelyn Rodriguez MD. CONSULTS: None. PROCEDURES: 1. Chest x-ray showing heart borderline in size, basilar atelectatic change in the lower lung patrick. No focal area of consolidation, pneumothorax, grabiel pulmonary edema or pleural effusion. 2. CT angio of chest. CTA is positive for partially occlusive thrombus seen at the right upper lobe, left upper lobe, left lower lobe. 3. Ultrasound, venous Doppler of the left extremity shows nonocclusive DVT on the superficial femoral vein and popliteal vein. PRIMARY DIAGNOSES: Pulmonary embolism, left deep venous thrombosis as noted in above imaging. SECONDARY DIAGNOSES: 1. Hypertension. 2. Type 2 diabetes. 3. Recent left total knee replacement. DISCHARGE MEDICATIONS: 1. Tylenol 325 mg p.o. q.6 hours. 2. Eliquis 10 mg p.o. b.i.d. for 6 days followed by 5 mg p.o. b.i.d. thereafter. 3. Aspirin 81 mg p.o. b.i.d. 4. Atorvastatin 10 mg p.o. at bedtime. 5. Montgomery 10 q.6 hours. 6. Metformin 500 mg p.o. b.i.d. 7. Zofran 4 mg p.o. at bedtime. Discontinued medications: None. [facility] PRESENT ILLNESS/HOSPITAL COURSE: This is a 62-year-old male with past medical history as above with recent TKR on the left, presents with shortness of breath and chest pain for one hour around 10 to 11 in the morning of admission. The patient stated he was not doing anything particular at the time, thought it was gas pain and took Tums. After Tums did not help, he came to the ER. The patient was diagnosed with DVT and PE as above as well as treated for his pain. While he was here, the patient was in significant pain, and Montgomery was increased from 7.5 to 10 during his stay. The patient worked with physical therapy while he was here and had some occasions of lightheadedness with physical therapy, however, progressed well towards goals. At the time of discharge, vital signs were stable. DISPOSITION: Stable. DISCHARGE INSTRUCTIONS: LOCATION: Home. DIET: Carb consistent. ACTIVITY: As tolerated. FOLLOWUP: With Outpatient Physical Therapy, PCP in 1 to 2 weeks, Dr. Bray as instructed. Job ID: [id number]
--- NOTE | 2018-05-01 09:20 | PQF ---
MATTHEW CELIS KATHERINE MD *r [id number] CLINICAL DOCUMENTATION CLARIFICATION FORM: POST DISCHARGE DATE: 05/01/2018 ATTN: Dr. Rodriguez Please exercise your independent, professional judgment in responding to the clarification form. Clinical indicators are provided on the bottom of this form for your review Please check appropriate box(s): [ x ] Pulmonary embolism is a postoperative complication related to recent surgery [ ] Pulmonary embolism is not a postoperative complication related to recent surgery [ x] Left femoral and popliteal deep vein thromboses are a postoperative complication related to recent surgery [ ] Left femoral and popliteal deep vein thromboses are not a postoperative complication related to recent surgery [ ] Other diagnosis please specify) [ ] Unable to determine In addition, please specify: Present on Admission (POA): [ x ] Yes [ ] No [ ] Unable to determine CLINICAL INDICATORS - SIGNS / SYMPTOMS / LABS Per H&P: Presented to ED after an hour long episode of chest pain and shortness of breath. Found to have DVT's in the left superficial femoral and popliteal veins. PE's in B/L upper lung lobes as well as LLL. RISK FACTORS Status post left total knee replacement on 04/22/18. TREATMENT: Per H&P: Heparin bolus in ED. Heparin drip 2000 units/hour. (This form is maintained as a part of the permanent medical record) 2014 [employer]. All Rights Reserved Jazzy [email or web address] [phone] MTDD
--- NOTE | 2018-05-03 14:28 | EKG ---
Test Reason : Blood Pressure : / mmHG Vent. Rate : 079 BPM Atrial Rate : 079 BPM P-R Int : 174 ms QRS Dur : 098 ms QT Int : 370 ms P-R-T Axes : 032 -04 013 degrees QTc Int : 424 ms Normal sinus rhythm Normal ECG Confirmed by JULIA HARRIS D.O. ([id number]), newspaper or periodical editor CODY WU ([id number]) on 05/03/2018 2:27:36 PM Referred By: Confirmed By:JULIA HARRIS D.O.
== END 2018-04-27 17:31 | disposition home or self-care (01) | DRG 300 ==
LOC: ERS 15:03 → 2SE 20:17 → 2NO 04-26 16:59
PROVIDERS: ADMIT Family Medicine; ATTEND Family Medicine
DX: T81.718A Complication of other artery following a procedure, not elsewhere classified, initial encounter (principal); I82.412 Acute embolism and thrombosis of left femoral vein; I82.432 Acute embolism and thrombosis of left popliteal vein; I26.99 Other pulmonary embolism without acute cor pulmonale; T81.72XA Complication of vein following a procedure, not elsewhere classified, initial encounter; E11.9 Type 2 diabetes mellitus without complications; I10 Essential (primary) hypertension; E78.5 Hyperlipidemia, unspecified; E66.9 Obesity, unspecified; Z68.35 Body mass index [BMI] 35.0-35.9, adult; Z79.84 Long term (current) use of oral hypoglycemic drugs; Z79.82 Long term (current) use of aspirin; Z79.899 Other long term (current) drug therapy; Z96.653 Presence of artificial knee joint, bilateral; Y83.1 Surgical operation with implant of artificial internal device as the cause of abnormal reaction of the patient, or of later complication, without mention of misadventure at the time of the procedure
CPT/HCPCS: 36415; 36416; 71045; 71275; 80053; 82550; 82553; 82565; 83036; 84484; 85014; 85018; 85025; 85049; 85610; 85730; 93005; 94150; 94760; 96365; 96375; G8978-GP-CJ; G8979-GP-CI; G8987-GO-CL; G8988-GO-CJ; J1644; J2270; J2405; Q0162

== ENCOUNTER 2018-05-02 16:03 | Inpatient (IN) | payer OTHER ==
[2018-05-02 17:06] LABS: #Eosinphils 0.1 thou/uL (0.0-0.7); #Lymphocytes 3.8 thou/uL (1.20-3.40); #Monocytes 1.2 thou/uL (0.11-0.59); #Neutrophils 8.4 thou/uL (1.40-6.50); %Basophils 0.2 % (0.0-1.0); %Eosinophils 0.8 % (0.0-10.0); %Lymphocytes 28.2 % (21.0-51.0); %Monocytes 8.8 % (0.0-10.0); Hemoglobin 8.9 g/dL (14.0-18.0); Mean Corpuscular Hemoglobin 31.3 pg (27.0-31.0); Mean Corpuscular Volume 92.1 fL (78.0-98.0); Mean Platelet Volume 6.5 fL (7.4-10.4); Platelet Count 503 thou/uL (130-400); RBC Distribution Width 11.6 % (11.5-14.5); Red Blood Cell (RBC) Count 2.86 mill/uL (4.70-6.10); White Blood Cell (WBC) Count 13.6 thou/uL (4.8-10.8)
[2018-05-02 17:12] LABS: INR-International Normal Ratio 1.5
[2018-05-02 17:26] LABS: ALT (SGPT) 11 U/L (8-55); AST (SGOT) 14 U/L (5-34); Albumin 3.4 g/dL (3.4-4.8); Alkaline Phosphatase 46 U/L (40-150); Anion Gap 13 mmol/L (10-20); BUN (Urea Nitrogen) 27 mg/dL (8.4-25.7); Bilirubin, Total 0.7 mg/dL (0.2-1.2); Calc. Creatinine Clearance 0 mL/min (70-130); Calcium 9.4 mg/dL (7.8-10.44); Carbon Dioxide 25 mmol/L (23-31); Chloride 100 mmol/L (98-107); Estimated GFR-MDRD 88; Glucose 117 mg/dL (80-115); Potassium 4.7 mmol/L (3.5-5.1); Protein, Total 6.4 g/dL (5.8-8.1); Sodium 133 mmol/L (136-145)
[2018-05-02] MEDS ORDERED: Ondansetron PF 4 MG/2 ML Vial ONE (18:26)
--- NOTE | 2018-05-02 18:32 | PDOC.FPRHP ---
- History of Present Illness Chief Complaint: Fatgiue History of Present Illness: Mr. Thompson presents to the ED directly from his PCPs office for hypotension He reports feeling more fatigued and light headed upon standing for the past 2 days. He also reports constipation since 04/25 and dark stools for the past 2 days. In his PCPs office his tilt table test was positive. He had a TKR on for OA by Dr. Bray, he went home same day and started having chest pain and difficulty breathing, instructed to go to ED. Found to have DVT/PE, started on heparin drip, transitioned to eliquis, DCd on 04/27. Hb at that time was 12.4. ED Course: CBC, CMP, FOBT -, PTT/PT, T&S Zofran, 1 L NS - Allergies/Adverse Reactions Allergies Allergy/AdvReac Type Severity Reaction Status Date / Time No Known Allergies Allergy Verified 11/04/17 16:04 - Home Medications Medication Instructions Recorded Confirmed Type Atorvastatin Calcium 10 mg PO HS 10/29/17 04/25/18 History Cholecalciferol (Vitamin D3) 5,000 unit PO DAILY 10/29/17 04/25/18 History [Vitamin D3] Lisinopril 10 mg PO DAILY 10/29/17 04/25/18 History metFORMIN [Glucophage] 500 mg PO BID-WM 10/29/17 04/25/18 History Vit B12/Intrinsic Fact/Folate 1 tablet PO DAILY 11/04/17 04/25/18 History [Intrinsi [id number]] Aspirin [Aspirin Chewable Tablet] 81 mg PO BID 04/25/18 04/25/18 History Methylsulfonylmethane [MSM] 1,000 mg PO BID 04/25/18 04/25/18 History Ondansetron HCl [Zofran] 8 mg PO BID 04/25/18 04/25/18 History Acetaminophen [Tylenol Regular 325 mg PO Q6HR tab 04/27/18 Rx Strength] Apixaban [Eliquis] 10 mg PO BID #60 tablet 04/27/18 Rx HYDROcodone Bit/APAP 10/325 [Thornfield] 1 tab PO Q6HR tab 04/27/18 Rx Ondansetron [Zofran ODT] 4 mg PO Q6H PRN tab 04/27/18 Rx Pregabalin [Lyrica] 75 mg PO BID #20 cap 04/27/18 Rx - History PMHx: HTN, DMII, DVT/PE- on anticoagulation PSHx: right TKR on 11/05/17 & left TKR on 04/22/18 FHx: CAD, brother/mother with possible clotting/bleeding disorders Social: no TAD - Review of Systems General: reports: fatigue. denies: fever/chills, night sweats Eyes: denies: vision changes Respiratory: denies: cough, congestion, shortness of breath Cardiovascular: denies: chest pain, palpitation, edema Gastrointestinal: reports: nausea, constipation, abdominal pain, GI bleeding. denies: vomiting, diarrhea Genitourinary: denies: dysuria Skin: denies: rashes, lesions Musculoskeletal: reports: pain, tenderness, swelling Neurological: reports: syncope - Vital signs BP: 112/75 HR: 80 RR: 18 Tmax: 98.9 Pox: 96% on RA Wt: 113kg - Physical Exam Constitutional: NAD, awake, alert and oriented HEENT: normocephalic and atraumatic, grossly normal vision, grossly normal hearing Neck: supple, trachea midline Chest: no-tender to palpation, no lesions Heart: RRR, normal S1/S2, no murmurs/rubs/gallops Lungs: CTAB, no respiratory distress, good air movement Abdomen: soft, non-tender, bowel sounds present Musculoskeletal: other (s/p TKR, associated swelling and bruising L knee) Neurological: no focal deficit Skin: no rash/lesions Heme/Lymphatic: no unusual bruising or bleeding, no purpura, no petechia Psychiatric: normal mood and affect FMR H&P: Results - Labs Result Diagrams: 05/02/18 16:54 05/02/18 16:54 Lab results: WBC 13.6 thou/uL (4.8-10.8) H 05/02/18 16:54 Hgb 8.9 g/dL (14.0-18.0) L 05/02/18 16:54 Hct 26.3 % (42.0-52.0) L 05/02/18 16:54 MCV 92.1 fL (78.0-98.0) 05/02/18 16:54 Plt Count 503 thou/uL (130-400) H 05/02/18 16:54 Neutrophils % 62.0 % (42.0-75.0) 05/02/18 16:54 Sodium 133 mmol/L (136-145) L 05/02/18 16:54 Potassium 4.7 mmol/L (3.5-5.1) 05/02/18 16:54 Chloride 100 mmol/L (98-107) 05/02/18 16:54 Carbon Dioxide 25 mmol/L (23-31) 05/02/18 16:54 BUN 27 mg/dL (8.4-25.7) H 05/02/18 16:54 Creatinine 0.88 mg/dL (0.7-1.3) 05/02/18 16:54 Glucose 117 mg/dL (80-115) H 05/02/18 16:54 Calcium 9.4 mg/dL (7.8-10.44) 05/02/18 16:54 Total Bilirubin 0.7 mg/dL (0.2-1.2) 05/02/18 16:54 AST 14 U/L (5-34) 05/02/18 16:54 ALT 11 U/L (8-55) 05/02/18 16:54 Alkaline Phosphatase 46 U/L (40-150) 05/02/18 16:54 Serum Total Protein 6.4 g/dL (5.8-8.1) 05/02/18 16:54 Albumin 3.4 g/dL (3.4-4.8) 05/02/18 16:54 FMR H&P: A/P - Problem List (1) GI (gastrointestinal bleed) Current Visit: Yes Status: Acute Code(s): K92.2 - GASTROINTESTINAL HEMORRHAGE, UNSPECIFIED (2) Deep vein thrombophlebitis of right leg Current Visit: No Status: Acute Code(s): I80.201 - PHLBTS AND THOMBOPHLB OF UNSP DEEP VESSELS OF R LOW EXTREM (3) Pulmonary emboli Current Visit: No Status: Acute Code(s): I26.99 - OTHER PULMONARY EMBOLISM WITHOUT ACUTE COR PULMONALE Qualifiers: Chronicity: acute (4) DM2 (diabetes mellitus, type 2) Current Visit: No Status: Chronic (5) HTN (hypertension) Current Visit: No Status: Chronic Code(s): I10 - ESSENTIAL (PRIMARY) HYPERTENSION - Plan Gastrointestinal bleed - most likely with downtrending hemoglobin since starting anticoagulation/dark stools, hypotension - s/p 1L NS in ED, LR 125 ml/hr - Type and screen, repeat 0001, AM - IV protonix 80mg, continue 40 BID - consider GI consult in AM hx of PE/DVT - on eliquis, hold for now - possible FHx of coagulation disorders - consider further evaluation s/p TKR - hold motrin, continue Thornfield DM - continue home meds HTN - hold home medications Code: full ppx: [facility] Disposition/LOS: dipso: admit to hospital for GI bleed evaluation, monitor H&H, hold anticoag FMR H&P: Upper Level - Pertinent history The patient is a 62YOM w/ a PMH significant for DMII & HTN as well as a left TKR on 04/22. CC of weakness/lightheadedness for 2 days, especially while standing. Sent from PCP today for hypotension. The patient denied any associated numbness, LOC, chest pain, or palpitations. He also denied any worsening left leg swelling or pain, but states it has not improved since his TKR. - Pertinent findings LABS: Decreased Hb 8.9 PE: GEN: NAD CARDIAC: RRR, no MRG NEURO: No focal dfficits. MAEW MSK: Compression stockings b/l. R knee more edematous than L. Moves toes. Uses walker - Plan Date/Time: 05/02/181828 IValdo, have evaluated this patient and agree with findings/plan as outlined by phd internship resident. Pertinent changes/additions are listed here. 1.Blood Loss Anemia 2/2 Acute GI Bleed - H/H drop from 13 on 04/25 to 8.9 today with a hx/o recent dark stools. Today is day 6 of his Eliquis and we will hold for now. Will need to likely consult GI and continue discussion on risks/ benefits of anticoagulation. 2. Pulmonary Emboli 2/2 DVT- left superficial femoral and popliteal veins along with B/L PEs. Continue compression stocking in RLE. Hold anticoagulation and encourage ambulation. 3. DMII - Will resume home meds; mild SSI and closely monitor. 5. HTN hold home medications, monitor BP. 6. HLD: Will Resume home meds. 7. Recent left TKR: Will resume home pain regimen as prescribed, but will hold NSAIDS
[2018-05-02] MEDS ORDERED: Bisacodyl 5 MG TAB PO PRN (20:40)
[2018-05-02] MEDS ORDERED: Pantoprazole 40 MG VIAL IVP SCH (20:40)
[2018-05-02] MEDS ORDERED: Ondansetron ODT 4 MG TAB PO PRN (20:40)
[2018-05-02] MEDS ORDERED: Ondansetron PF 4 MG/2 ML Vial IVP PRN (20:40)
[2018-05-02] MEDS ORDERED: Senokot S 8.6-50 MG TAB PO PRN (20:40)
[2018-05-02] MEDS ORDERED: Atorvastatin Calcium 10 MG TAB PO SCH (21:45)
[2018-05-02] MEDS: Atorvastatin Calcium 10 MG TAB PO SCH (21:57)
[2018-05-02] MEDS: Lactated Ringer's 1,000 ML IV SCH (21:59)
[2018-05-02] MEDS ORDERED: metFORMIN 500 MG TAB PO SCH (22:00)
[2018-05-02] MEDS: Acetaminophen 325 MG TAB PO SCH (23:50)
[2018-05-02] MEDS ORDERED: HYDROcodone/Acetaminophen 10/325 mg Tablet PO SCH (23:59)
[2018-05-03] MEDS ORDERED: Morphine 4 MG/ML VIAL SLOW IVP PRN (00:31)
[2018-05-03 00:42] LABS: Hemoglobin 7.8 g/dL (14.0-18.0); Mean Corpuscular HGB CONC 33.1 g/dL (32.0-36.0); Mean Corpuscular Hemoglobin 30.5 pg (27.0-31.0); Mean Corpuscular Volume 92.2 fL (78.0-98.0); Mean Platelet Volume 6.1 fL (7.4-10.4); Platelet Count 424 thou/uL (130-400); RBC Distribution Width 11.7 % (11.5-14.5); Red Blood Cell (RBC) Count 2.55 mill/uL (4.70-6.10); White Blood Cell (WBC) Count 11.3 thou/uL (4.8-10.8)
[2018-05-03] MEDS: HYDROcodone/Acetaminophen 10/325 mg Tablet PO SCH ×4 (05:14→21:03)
[2018-05-03] MEDS: Acetaminophen 325 MG TAB PO SCH ×4 (05:15→23:09)
[2018-05-03] MEDS: Lactated Ringer's 1,000 ML IV SCH ×3 (05:15→21:06)
--- NOTE | 2018-05-03 05:30 | PDOC.FM ---
- Subjective Subjective: Patient states he feels alright this AM. Denies any N/V, abdominal pain, chest pain, or diarrhea/constipation. Has not had any dark BMs or any BMs at all since admission. Says his knee pain has not been well-controlled on the OLGA Bowen Q6H and 2mg IV morphine for breakthrough pain. Says he thinks he would feel much better if his pain was better controlled. Also endorses some orthostasis, especially from laying to sitting. Also endorses some SOB with exertion. - Objective MAR Reviewed: Yes Vital Signs & Weight: Vital Signs (12 hours) Temp Pulse Resp BP BP BP BP 05/03/18 05:10 82 16 107/63 05/03/18 03:48 97.8 F 77 15 110/58 L 05/03/18 02:06 77 20 107/58 L 87/54 L 89/53 L 05/02/18 23:48 99.7 F H 83 20 117/58 L 05/02/18 20:34 99.1 F 79 20 124/75 Pulse Ox 05/03/18 05:10 05/03/18 03:48 94 L 05/03/18 02:06 05/02/18 23:48 94 L 05/02/18 20:34 96 Weight Weight 111.357 kg Result Diagrams: 05/03/18 05:09 05/03/18 05:09 Phys Exam - Physical Examination Constitutional: NAD HEENT: sclera anicteric Neck: supple, full ROM Respiratory: no wheezing, no rales, no rhonchi, clear to auscultation bilateral Cardiovascular: RRR, no significant murmur Gastrointestinal: soft, non-tender, no distention, positive bowel sounds edema in right leg 2/2 recent surgery; compression stockings in B/L LEs Neurological: non-focal, moves all 4 limbs Psychiatric: normal affect, A&O x 3 Skin: no rash, normal turgor Dx/Plan (1) GI (gastrointestinal bleed) Code(s): K92.2 - GASTROINTESTINAL HEMORRHAGE, UNSPECIFIED Status: Acute (2) DM2 (diabetes mellitus, type 2) Status: Chronic (3) Dyslipidemia Code(s): E78.5 - HYPERLIPIDEMIA, UNSPECIFIED Status: Chronic (4) HTN (hypertension) Code(s): I10 - ESSENTIAL (PRIMARY) HYPERTENSION Status: Chronic (5) Obesity (BMI 30.0-34.9) Code(s): E66.9 - OBESITY, UNSPECIFIED Status: Chronic (6) History of deep vein thrombosis (DVT) of lower extremity Code(s): Z86.718 - PERSONAL HISTORY OF OTHER VENOUS THROMBOSIS AND EMBOLISM Status: Acute (7) History of pulmonary embolus (PE) Code(s): Z86.711 - PERSONAL HISTORY OF PULMONARY EMBOLISM Status: Acute - Plan Plan: Gastrointestinal bleed - Most likely source of hypotension with downtrending hemoglobin since starting anticoagulation as well as dark stools for the last 2 days. Hgb now stable at 7.7 this AM from 7.8 around midnight. - Will keep NPO and continue LR 125 @ ml/hr pending GI consult for possible EGD/ colonoscopy to look for source of bleeding. - Will continue IV protonix 40mg BID. - Will likely consult GI this AM given continued drop in Hgb and persistently low BPs overnight. However, patient has remained HD stable w/ mIVFs. - Discussed risks and benefits of a possible transfusion to help alleviate orthostatic symptoms but patient declined at this time. - Will continue to monitor H/H w/ QD CBCs. hx of PE/DVT - Aware, has been on eliquis. Will continue to hold for now & use SCDs for DVT PPx. - Possible FHx of coagulation disorders, however, not necessarily unprovoked at patient was immobile from surgery. - Will consider further evaluation. Post-op day #8 s/p left TKR - Will hold motrin & continue OLGA pain control with Bowen, tylenol, and morphine only for now given current GI bleed. - Will consider adding gapapentin as well since NSAIDS CI at this time. DM - Will continue home meds. HTN - BP low-normal since admission. Will hold home medications for now & resume as tolerated by patient. Code: full ppx: mech Diet: NPO IVFs: LR @ 125mL/hr Disposition/LOS: Dipso: Will continue to monitor vitals and H&H. Will hold anticoagulation and will likely consult GI for evaluation for source of bleed.
[2018-05-03 06:26] LABS: #Basophils 0.1 thou/uL (0.0-0.2); #Eosinphils 0.4 thou/uL (0.0-0.7); #Lymphocytes 2.7 thou/uL (1.20-3.40); #Monocytes 0.9 thou/uL (0.11-0.59); %Basophils 0.7 % (0.0-1.0); %Eosinophils 4.3 % (0.0-10.0); %Lymphocytes 29.7 % (21.0-51.0); %Monocytes 10.3 % (0.0-10.0); %Neutrophils 54.9 % (42.0-75.0); Hemoglobin 7.7 g/dL (14.0-18.0); Mean Corpuscular Hemoglobin 30.9 pg (27.0-31.0); Mean Corpuscular Volume 93.5 fL (78.0-98.0); Mean Platelet Volume 6.4 fL (7.4-10.4); Platelet Count 431 thou/uL (130-400); RBC Distribution Width 11.8 % (11.5-14.5); Red Blood Cell (RBC) Count 2.51 mill/uL (4.70-6.10)
[2018-05-03 06:41] LABS: ALT (SGPT) 10 U/L (8-55); AST (SGOT) 9 U/L (5-34); Albumin 2.9 g/dL (3.4-4.8); Alkaline Phosphatase 39 U/L (40-150); Anion Gap 10 mmol/L (10-20); BUN (Urea Nitrogen) 16 mg/dL (8.4-25.7); Bilirubin, Total 0.6 mg/dL (0.2-1.2); Calc. Creatinine Clearance 145 mL/min (70-130); Calcium 8.5 mg/dL (7.8-10.44); Carbon Dioxide 26 mmol/L (23-31); Chloride 104 mmol/L (98-107); Estimated GFR-MDRD Greater than 90; Globulin 2.6 g/dL (2.4-3.5); Glucose 111 mg/dL (80-115); Potassium 4.3 mmol/L (3.5-5.1); Protein, Total 5.5 g/dL (5.8-8.1); Sodium 136 mmol/L (136-145)
[2018-05-03] MEDS: metFORMIN 500 MG TAB PO SCH ×2 (08:37→16:48)
[2018-05-03] MEDS: Pantoprazole 40 MG VIAL IVP SCH ×2 (08:37→21:06)
[2018-05-03] MEDS ORDERED: Dextrose 5% in Water 1,000 ML IV PRN (10:39)
[2018-05-03] MEDS ORDERED: HumaLOG 300 UNITS/3 ML VIAL SC PRN (10:39)
[2018-05-03] MEDS ORDERED: Dextrose 50% Abboject 50 ML SYRINGE SLOW IVP PRN (10:39)
[2018-05-03 12:26] LABS: Mean Corpuscular HGB CONC 33.9 g/dL (32.0-36.0); Mean Corpuscular Hemoglobin 31.8 pg (27.0-31.0); Mean Corpuscular Volume 93.8 fL (78.0-98.0); Platelet Count 473 thou/uL (130-400); RBC Distribution Width 11.8 % (11.5-14.5); Red Blood Cell (RBC) Count 2.52 mill/uL (4.70-6.10); White Blood Cell (WBC) Count 9.8 thou/uL (4.8-10.8)
[2018-05-03] MEDS: Morphine 4 MG/ML VIAL SLOW IVP PRN ×2 (12:35→22:07)
[2018-05-03 13:12] VITALS: BMI 34.2
--- NOTE | 2018-05-03 14:37 | CON ---
DATE OF CONSULTATION: 05/03/2018 GI INPATIENT CONSULTATION NOTE REASON FOR CONSULTATION: GI bleeding. HISTORY OF PRESENT ILLNESS: Freddy Thompson is a very pleasant 62-year-old gentleman, previously seen by my GI colleague, Dr. Tanmay Schultz. He had an EGD and colonoscopy back in 2013. The EGD showed grade A esophagitis and a 2 cm hiatal hernia. His colonoscopy was normal. Over the past year, Mr. Thompson has had a couple of orthopedic surgeries. He had a right knee replacement in October 2017 and left knee replacement more recently on 04/22/2018. Mr. Thompson unfortunately developed complication of DVT and pulmonary embolus diagnosed on he was initially on heparin and then converted to Eliquis, which he has been taking once per day. Due to significant continued knee pain, he has been taking Motrin for breakthrough pain, particularly over the past week. He states that, over the past couple of days, he started feeling lightheaded, particularly when standing up straight. He had a few episodes of presyncopal sensation, but no actual syncope. There was some dyspnea on exertion. He also noticed that his bowel movements were considerably darker. He states that his bowel movements were often quite dark, but this was a little bit more than before. There has been no vomiting or hematemesis. No hematochezia. No other overt bleeding from anywhere. On presentation, his hemoglobin was found to have declined from 12.4 just one week ago, down to 8.9 on admission last night, and now further to 7.7 this morning. He has actually not had any melena or any bowel movements since his arrival last night. With some fluid resuscitation, his blood pressures are more stable, he is not tachycardiac. He denies any abdominal pain or nausea. He says he takes Nexium or Tums intermittently just on an as needed basis for heartburn. PAST MEDICAL HISTORY: Hypertension, diabetes, right knee replacement October 2017, left knee replacement March 2018, DVT and pulmonary embolus diagnosed hiatal hernia and esophagitis based on EGD in 2013, colonoscopy normal 2013. ALLERGIES: NO KNOWN DRUG ALLERGIES. OUTPATIENT MEDICATIONS: 1. Atorvastatin. 2. Vitamin D3. 3. Lisinopril. 4. Metformin. 5. Vitamin B12/folic acid. 6. Aspirin 81 mg twice daily. 7. Methylsulfonylmethane 1000 mg b.i.d. 8. Zofran 8 mg b.i.d. 9. Tylenol p.r.n. 10. Eliquis 10 mg once daily. 11. Hydrocodone/acetaminophen p.r.n. 12. Lyrica 75 mg b.i.d. 13. Motrin p.r.n. over the past week in particular. INPATIENT MEDICATIONS: 1. Tylenol p.r.n. 2. [place] p.r.n. 3. Lipitor. 4. Metformin. 5. Pantoprazole 40 mg IV q.12 hours. 6. Senna p.r.n. SOCIAL HISTORY: No tobacco, alcohol, or drug use. FAMILY HISTORY: His father had a history of malignant hyperthermia. Mother and brother possibly had some kind of coagulation disorder. REVIEW OF SYSTEMS: Full review of systems including constitutional, head, eyes, ears, nose, throat, GI, , cardiovascular, respiratory, musculoskeletal, and neurologic systems are negative, except as noted in the HPI. PHYSICAL EXAMINATION: VITAL SIGNS: Temperature 98.0, pulse 76, blood pressure 107/54, and 95% oxygen saturation on room air. GENERAL: A 62-year-old man, lying in bed comfortably in no acute distress. SKIN: He is a bit pale. No jaundice. No rashes are palpable. EYES: No scleral icterus. Extraocular movements intact. ENT: Mucous membranes moist. No oral lesions. LYMPH NODES: No submandibular or supraclavicular lymphadenopathy. THYROID: Nontender to palpation. HEART: Regular rate and rhythm. LUNGS: Clear to auscultation bilaterally. ABDOMEN: Nondistended. Bowel sounds are present, soft, and nontender to palpation throughout. EXTREMITIES: No peripheral edema. VESSELS: Radial pulses 2+ bilaterally. NEUROLOGIC: Cranial nerves 2 through 12 intact bilaterally. No focal deficits. LABORATORY STUDIES: Hemoglobin 7.7, this is declined from 12.4 just 1 week ago; WBC 9.0; platelets 431. INR 1.5. BUN 16, this is down from 27 on admission yesterday; creatinine is 0.83; sodium 136; potassium 4.3. LFTs are normal with total bilirubin 0.6, alkaline phosphatase 39, AST 9, ALT 10, and albumin 2.9. ASSESSMENT AND PLAN: 1. Melena. 2. Acute blood loss anemia, symptomatic. The patient's overall presentation seems most consistent with upper gastrointestinal bleeding source, particularly given the increased NSAID use over the past week and he has recently been put on Eliquis. Also, do need to consider possible unmasking of lower GI bleeding source given his last colonoscopy was 4 years ago. I agree with the IV PPI, holding the anticoagulation and holding all NSAIDs for now. Continue to monitor H and H and transfuse as needed. He appears stable at this time with no melena so far today. We will plan for bowel preparation this evening followed by diagnostic upper and lower endoscopy tomorrow morning. I have discussed this with the patient and family in detail and they decided to proceed. Thank you for the consultation. Please call any time with questions or concerns. Job ID: [id number]
[2018-05-03] MEDS ORDERED: GoLYTELY 4,000 ml Bottle PO SCH (17:00)
[2018-05-03] MEDS: Ondansetron ODT 4 MG TAB PO PRN (21:11)
[2018-05-04] MEDS: Morphine 4 MG/ML VIAL SLOW IVP PRN ×2 (02:29→23:48)
[2018-05-04] MEDS: HYDROcodone/Acetaminophen 10/325 mg Tablet PO SCH ×4 (03:58→21:16)
[2018-05-04] MEDS: Lactated Ringer's 1,000 ML IV SCH ×3 (05:23→21:17)
[2018-05-04] MEDS: Acetaminophen 325 MG TAB PO SCH ×4 (06:12→23:48)
[2018-05-04 06:21] LABS: Anion Gap 10 mmol/L (10-20); BUN (Urea Nitrogen) 12 mg/dL (8.4-25.7); Calc. Creatinine Clearance 141 mL/min (70-130); Calcium 8.4 mg/dL (7.8-10.44); Carbon Dioxide 27 mmol/L (23-31); Chloride 105 mmol/L (98-107); Estimated GFR-MDRD Greater than 90; Glucose 99 mg/dL (80-115); Potassium 3.6 mmol/L (3.5-5.1); Sodium 138 mmol/L (136-145)
--- NOTE | 2018-05-04 07:04 | PDOC.FM ---
- Objective MAR Reviewed: Yes Vital Signs & Weight: Vital Signs (12 hours) Temp Pulse Resp BP Pulse Ox 05/04/18 02:27 99.2 F 77 16 125/70 96 05/03/18 22:06 84 20 117/69 05/03/18 19:39 99 F 83 18 116/68 94 L Weight Admit Weight 111.357 kg Weight 109.134 kg I&O: 05/03/18 05/04/18 05/05/18 06:59 06:59 06:59 Intake Total 1420 7351 Output Total 1150 4625 Balance 270 3984 Result Diagrams: 05/03/18 12:19 05/04/18 04:50 Phys Exam - Physical Examination Constitutional: NAD HEENT: sclera anicteric Neck: supple, full ROM Respiratory: no wheezing, no rales, no rhonchi, clear to auscultation bilateral Cardiovascular: RRR, no significant murmur Gastrointestinal: soft, non-tender, no distention, positive bowel sounds Neurological: non-focal, moves all 4 limbs Psychiatric: normal affect, A&O x 3 Skin: no rash, normal turgor Dx/Plan (1) GI (gastrointestinal bleed) Code(s): K92.2 - GASTROINTESTINAL HEMORRHAGE, UNSPECIFIED Status: Acute (2) DM2 (diabetes mellitus, type 2) Status: Chronic (3) Dyslipidemia Code(s): E78.5 - HYPERLIPIDEMIA, UNSPECIFIED Status: Chronic (4) HTN (hypertension) Code(s): I10 - ESSENTIAL (PRIMARY) HYPERTENSION Status: Chronic (5) Obesity (BMI 30.0-34.9) Code(s): E66.9 - OBESITY, UNSPECIFIED Status: Chronic (6) History of deep vein thrombosis (DVT) of lower extremity Code(s): Z86.718 - PERSONAL HISTORY OF OTHER VENOUS THROMBOSIS AND EMBOLISM Status: Acute (7) History of pulmonary embolus (PE) Code(s): Z86.711 - PERSONAL HISTORY OF PULMONARY EMBOLISM Status: Acute (8) Symptomatic anemia Code(s): D64.9 - ANEMIA, UNSPECIFIED Status: Acute - Plan Plan: Symptomatic anemia 2/2 suspected Gastrointestinal bleed - Upper GI bleed most likely source of hypotension with downtrending hemoglobin since starting anticoagulation as well as dark stools for the last 2 days before admission. Hgb now stable at 7.8-8.0 per last 2 CBC. Repeat pending for this AM. BP reaching more normal ranges over the last few vital checks as patient has been receiving IVFs since his admission. - GI, Dr. Del Toro, on board and recommended an EGD and colonoscopy today to look for the source of his melena. - Will keep NPO and continue LR 125 @ ml/hr in anticipation of scopes this AM. - Will continue IV protonix 40mg BID per GI recs. - Will continue to monitor H/H w/ QD CBCs & transfuse PRN. hx of PE/DVT - Aware, has been on eliquis. Will continue to hold for now & use SCDs for DVT PPx. - Possible FHx of coagulation disorders, however, not necessarily unprovoked at patient was immobile from surgery. - Will consider further evaluation. Post-op day #9 s/p left TKR - Will hold motrin & continue OLGA pain control with [place], tylenol, and morphine only for now given current GI bleed. - Will consider adding gapapentin as well since NSAIDS CI at this time. DM - Will continue home meds. HTN - BP low-normal since admission. Will hold home medications for now & resume as tolerated by patient. Code: full PPx: mech Diet: NPO IVFs: LR @ 125mL/hr Dipso: Will continue to monitor vitals and H&H. Will hold anticoagulation and resume anticoagulation per GI recs after scopes today.
[2018-05-04] MEDS ORDERED: CEFAZOLIN 2 GM/50 ML BAG ONE ×2 (07:33→08:24)
[2018-05-04] MEDS ORDERED: Morphine 2 MG/ML SYRINGE ONE (07:33)
[2018-05-04 08:23] LABS: #Basophils 0.1 thou/uL (0.0-0.2); #Eosinphils 0.3 thou/uL (0.0-0.7); #Lymphocytes 2.7 thou/uL (1.20-3.40); #Monocytes 0.9 thou/uL (0.11-0.59); #Neutrophils 5.1 thou/uL (1.40-6.50); %Basophils 0.6 % (0.0-1.0); %Eosinophils 2.9 % (0.0-10.0); %Lymphocytes 29.7 % (21.0-51.0); %Monocytes 10.3 % (0.0-10.0); %Neutrophils 56.5 % (42.0-75.0); Hemoglobin 7.5 g/dL (14.0-18.0); Mean Corpuscular HGB CONC 33.4 g/dL (32.0-36.0); Mean Corpuscular Hemoglobin 31.5 pg (27.0-31.0); Mean Corpuscular Volume 94.1 fL (78.0-98.0); Mean Platelet Volume 6.3 fL (7.4-10.4); Platelet Count 487 thou/uL (130-400); Red Blood Cell (RBC) Count 2.37 mill/uL (4.70-6.10); White Blood Cell (WBC) Count 9.1 thou/uL (4.8-10.8)
[2018-05-04] MEDS ORDERED: Ondansetron HCl/PF 4 MG/2 ML Vial IVP PRN (09:08)
[2018-05-04] MEDS ORDERED: Promethazine HCl 25 MG/ML VIAL SLOW IVP PRN (09:08)
[2018-05-04] MEDS ORDERED: Promethazine HCl 25 MG/ML VIAL IM PRN (09:08)
[2018-05-04] MEDS: Ondansetron ODT 4 MG TAB PO PRN (12:05)
[2018-05-04] MEDS: Pantoprazole 40 MG VIAL IVP SCH ×2 (12:05→19:43)
[2018-05-04] MEDS: metFORMIN 500 MG TAB PO SCH ×2 (12:07→17:42)
[2018-05-04] MEDS ORDERED: PROPOFOL 200 MG/20 ML VIAL ONE (12:39)
[2018-05-04] MEDS ORDERED: Iron, Sodium Ferric Gluconate 125 MG in Sodium Chloride 0.9% 100 ML IVPB SCH (12:45)
[2018-05-04 12:51] LABS: Iron 23 ug/dL (65-175); Iron Binding Capacity, Total 243 mcg/dL (261-462)
--- NOTE | 2018-05-04 15:36 | OP ---
DATE OF PROCEDURE: 05/04/2018 SHIP SUPERINTENDENT SURGEON: None. PROCEDURES PERFORMED: 1. Esophagogastroduodenoscopy, diagnostic. 2. Colonoscopy, diagnostic. INDICATIONS: 1. Melena. 2. Acute blood loss anemia. MEDICATIONS: See Anesthesia record. FINDINGS: After discussion of the risks, benefits, and alternatives of the procedure, informed consent was obtained and witnessed. Pre-endoscopic cardiopulmonary examination was satisfactory. Time-out was performed before sedation was achieved. Sedation was achieved with Anesthesia assistance in the endoscopy unit. A Pentax adult upper endoscope was placed into the oropharynx and passed through the cricopharyngeus under direct visualization. The proximal and mid esophageal mucosa appeared normal; however, in the distal esophagus for about a 5 cm segment from 30 to 35 cm, there was severe erosive esophagitis. There were confluent shallow ulcerations, which were circumferential in this area. Distally, there was a single red spot in otherwise clean based shallow ulceration. There was no evidence of any old blood or active bleeding. No evidence of esophageal varices. The endoscope was advanced beyond the GE junction and into the stomach. Forward and retroflexed views of the entire gastric mucosa were obtained. There was a tiny hiatal hernia. The gastric mucosa was otherwise normal. The endoscope was advanced through the pylorus into the first and second portions of the duodenum, which appeared normal. The upper endoscope was completely withdrawn and the patient was repositioned. Digital rectal exam was performed, which was unremarkable. The Pentax adult colonoscope was inserted into the anus and passed forward to the cecum in the usual fashion. The cecal base was identified by the appendiceal orifice as well as the ileocecal valve. The terminal ileum was intubated and the ileal mucosa appeared normal. The colonoscope was then slowly withdrawn in a gradual and circumferential manner with careful examination of the entire colonic mucosa. The quality of the prep was good. The colonic mucosa appeared normal throughout. There were no evidence of any polyps or mass lesions. No evidence of any old blood or active bleeding. No evidence of any bleeding lesion. Retroflexion of the rectum was unremarkable. The colonoscope was completely withdrawn and the patient allowed to recover. The patient tolerated the procedure well. There were no immediate postprocedure complications. IMPRESSION: 1. Severe LA grade D distal erosive esophagitis with confluent shallow ulceration circumferentially from 30 to 35 cm. 2. Small hiatal hernia. 3. Otherwise normal esophagogastroduodenoscopy. 4. Normal colonoscopy to the terminal ileum. 5. No evidence of any old blood or active bleeding on this exam. RECOMMENDATIONS: 1. I would have the patient on twice daily proton pump inhibitor pantoprazole 40 mg twice daily. Would keep this IV while inpatient, and transition to p.o. on hospital discharge. 2. Stop nonsteroidal anti-inflammatory drug use. 3. Stay upright for 1 to 2 hours after medications or meals. 4. I think anticoagulation could be cautiously restarted at this point, with close monitoring of hemoglobin and hematocrit going forward. 5. We will advance his diet. Job ID: [id number]
[2018-05-04] MEDS: Atorvastatin Calcium 10 MG TAB PO SCH (19:42)
[2018-05-05] MEDS: HYDROcodone/Acetaminophen 10/325 mg Tablet PO SCH ×2 (04:15→09:01)
[2018-05-05] MEDS: Lactated Ringer's 1,000 ML IV SCH (05:27)
[2018-05-05] MEDS: Acetaminophen 325 MG TAB PO SCH ×2 (05:28→11:35)
[2018-05-05 06:29] LABS: #Eosinphils 0.3 thou/uL (0.0-0.7); #Lymphocytes 2.6 thou/uL (1.20-3.40); #Monocytes 0.7 thou/uL (0.11-0.59); #Neutrophils 4.6 thou/uL (1.40-6.50); %Basophils 0.5 % (0.0-1.0); %Eosinophils 3.5 % (0.0-10.0); %Lymphocytes 31.9 % (21.0-51.0); %Monocytes 8.5 % (0.0-10.0); %Neutrophils 55.6 % (42.0-75.0); Hemoglobin 7.6 g/dL (14.0-18.0); MDiff Complete? YES; Mean Corpuscular HGB CONC 32.9 g/dL (32.0-36.0); Mean Corpuscular Hemoglobin 31.2 pg (27.0-31.0); Mean Corpuscular Volume 95.1 fL (78.0-98.0); Mean Platelet Volume 6.3 fL (7.4-10.4); PLT Morphology Comment Appears Increased; Platelet Count 530 thou/uL (130-400); Polychromasia SLIGHT = 2-3 cells (100X) (0-2/hpf); RBC Distribution Width 12.5 % (11.5-14.5); Red Blood Cell (RBC) Count 2.42 mill/uL (4.70-6.10); White Blood Cell (WBC) Count 8.3 thou/uL (4.8-10.8)
--- NOTE | 2018-05-05 08:24 | PDOC.FM ---
- Subjective Subjective: Pt states his pain is controlled today. He denies SOB, chest pain, nausea, or vomiting. He states that his lightheadedness is resolved. - Objective MAR Reviewed: Yes Vital Signs & Weight: Vital Signs (12 hours) Temp Pulse Resp BP Pulse Ox 05/05/18 07:30 98.4 F 61 17 125/78 05/05/18 03:15 97.9 F 77 20 117/59 L 93 L 05/04/18 23:24 99.5 F 72 20 108/56 L 95 05/04/18 21:15 90 20 106/63 Weight Admit Weight 111.357 kg Weight 108.046 kg I&O: 05/04/18 05/05/18 05/06/18 06:59 06:59 06:59 Intake Total 7351 4351 Output Total 4639 1478 Balance 6067 0647 Result Diagrams: 05/05/18 05:06 05/04/18 04:50 Phys Exam - Physical Examination Constitutional: NAD HEENT: moist MMs Neck: no JVD Respiratory: no wheezing, clear to auscultation bilateral Cardiovascular: RRR, no significant murmur Gastrointestinal: soft, non-tender, no distention, positive bowel sounds Musculoskeletal: no edema, pulses present Neurological: moves all 4 limbs Psychiatric: normal affect, A&O x 3 Skin: cap refill <2 seconds Dx/Plan (1) Gastritis Code(s): K29.70 - GASTRITIS, UNSPECIFIED, WITHOUT BLEEDING Status: Acute (2) Symptomatic anemia Code(s): D64.9 - ANEMIA, UNSPECIFIED Status: Acute (3) Deep vein thrombophlebitis of right leg Code(s): I80.201 - PHLBTS AND THOMBOPHLB OF UNSP DEEP VESSELS OF R LOW EXTREM Status: Acute (4) Pulmonary emboli Code(s): I26.99 - OTHER PULMONARY EMBOLISM WITHOUT ACUTE COR PULMONALE Status : Acute Qualifiers: Chronicity: acute (5) DM2 (diabetes mellitus, type 2) Status: Chronic (6) HTN (hypertension) Code(s): I10 - ESSENTIAL (PRIMARY) HYPERTENSION Status: Chronic - Plan Plan: This is a 62 yo male with a pmh of recent PE, DVT, HTN, DM2, HLD Symptomatic anemia 2/2 GI bleed -Improved, pt denies any recurrent dark stools -Dr. Del Toro performed EGD and found Gastritis. He recommends Protonix BID, avoiding NSAIDs, and restarting anticoagulation -Iron studies shows iron deficiency, we are starting iron supplementation to be taken outpt -We will continue to monitor vital signs, Hgb stable at 7.6 (7.5 yesterday) PE/DVT -Recently started on Eliquis for treatment of PE and DVT -We will be resuming Eliquis for managment of this POD 10 s/p left TKR -Pain is being managed with norco, we are holding any NSAIDs -Pt has tried gabapentin the past, we will add lyrica if need be DM -Continue home meds HTN -BP has been stable overnight -Continue BP meds Pt. will likely go to SNF later today for PT and closer monitoring. Case management has been consulted
[2018-05-05] MEDS: metFORMIN 500 MG TAB PO SCH (08:58)
[2018-05-05] MEDS: Pantoprazole 40 MG VIAL IVP SCH (08:58)
[2018-05-05 11:41] VITALS: BP 136/73; TEMP 98.3
--- NOTE | 2018-05-05 12:14 | PRG ---
DATE OF SERVICE: 05/05/2018 ADDENDUM: This is an addendum to the note of Dr. Yordan Crawford. Mr. Thompson is a very pleasant 62-year-old man, who had knee surgery approximately one week ago. He presented back to our hospital with DVT and pulmonary embolus, and subsequent to that developed evidence of possible GI bleeding and anemia. He was scoped by Dr. Del Toro, who found a distal erosive esophagitis with shallow ulceration, small hiatal hernia. Otherwise, normal EGD. He recommended that we place the patient on twice daily proton pump inhibitor, stop all NSAIDs, and resume his Eliquis. This is being done and the patient will likely be discharged today for close SNF or home followup. Job ID: [id number]
--- NOTE | 2018-05-06 12:43 | DIS ---
DATE OF ADMISSION: 05/02/2018 DATE OF DISCHARGE: 05/05/2018 ADMITTING ATTENDING: Davie Espinal MD DISCHARGE ATTENDING: Miguel Lane MD RESIDENT: Yordan Crawford DO CONSULTATION: GI, Dr. Del Toro. PROCEDURES: Colonoscopy and EGD. EGD shows severe LA grade D distal erosive esophagitis with confluent shallow ulceration circumferentially from 30 to 35 cm, small hiatal hernia, otherwise normal esophagogastroduodenoscopy, normal colonoscopy to the terminal ileum, no evidence of old blood or active bleeding on that exam. PRIMARY DIAGNOSIS: Upper gastrointestinal bleed with symptomatic anemia. SECONDARY DIAGNOSES: Hypertension, type 2 diabetes, history of deep venous thrombosis/pulmonary embolism secondary to recent left TKR, on Eliquis. DISCHARGE MEDICATIONS: 1. Eliquis 10 mg p.o. b.i.d. for 1 week and then 5 mg p.o. b.i.d. thereafter. 2. Tylenol 325 p.o. q.6 hours. 3. Atorvastatin 10 mg p.o. h.s. 4. [place] 10 q.6 hours p.r.n. pain. 5. Metformin 500 mg p.o. b.i.d. 6. Zofran 4 mg p.o. q.6 hours. 7. Aspirin 81 mg p.o. b.i.d. 8. Protonix 40 mg p.o. b.i.d. 9. Carafate 1 g p.o. a.c. DISCONTINUED MEDICATIONS: None. BRIEF HISTORY OF PRESENT ILLNESS/HOSPITAL COURSE: This is a 62-year-old male with past medical history as above, who presented with fatigue and lightheadedness with positive tilt test in PCP office. The patient reported having some chest pain, difficulty breathing prior to going to the ER. At the time of discharge from previous admission, hemoglobin was 12.4, that was on 04/27/2018. On admission, hemoglobin was 8.9 and the patient was observed while he is here and hemoglobin was monitored. The patient also had an EGD and colonoscopy revealing the findings above. At the time of discharge, vital signs were stable. Hemoglobin was 7.6, up from 7.5 the day before. The patient has followup appointment with this afternoon as well as followup labs with his PCP, Dr. Fernandes at [place] on Saturday. I have discussed this patient with Dr. Fernandes in detail and he is aware of the patient's current condition. DISPOSITION: Stable. DISCHARGE INSTRUCTIONS: 1. Location: Home. 2. Activity: As tolerated. 3. Diet: Carb consistent. 4. Followup: With Dr. Lane this afternoon and PCP on Saturday. Job ID: [id number]
== END 2018-05-05 13:47 | disposition home or self-care (01) | DRG 378 ==
LOC: ERS 16:03 → 2NO 18:30
PROVIDERS: ADMIT Family Medicine; ATTEND Family Medicine
PROC: 0DJ08ZZ Inspection of Upper Intestinal Tract, Via Natural or Artificial Opening Endoscopic (ICD-10-PCS; principal; 2018-05-04)
PROC: 0DJD8ZZ Inspection of Lower Intestinal Tract, Via Natural or Artificial Opening Endoscopic (ICD-10-PCS; 2018-05-04)
DX: K92.1 Melena (principal); D62 Acute posthemorrhagic anemia; K22.10 Ulcer of esophagus without bleeding; K44.9 Diaphragmatic hernia without obstruction or gangrene; I10 Essential (primary) hypertension; E11.9 Type 2 diabetes mellitus without complications; E78.5 Hyperlipidemia, unspecified; E66.9 Obesity, unspecified; Z68.33 Body mass index [BMI] 33.0-33.9, adult; Z79.01 Long term (current) use of anticoagulants; Z86.711 Personal history of pulmonary embolism; Z86.718 Personal history of other venous thrombosis and embolism; Z96.653 Presence of artificial knee joint, bilateral; Z82.49 Family history of ischemic heart disease and other diseases of the circulatory system
CPT/HCPCS: 36415; 36416; 80048; 80053; 82274; 82728; 83540; 83550; 85025; 85027; 85610; 85730; 86850; 86900; 86901; 96361; 96374; C9113; G8978-GP-CJ; G8979-GP-CI; J2270; J2405; J2704; J2916; J7050; Q0162

== ENCOUNTER 2019-09-29 16:30 | Outpatient (CLI) | payer OTHER | END 2019-09-29 16:31 | disposition home or self-care (01) | LOC: SLEEPLAB 16:30 | PROVIDERS: ATTEND Family Medicine | DX: G47.33 Obstructive sleep apnea (adult) (pediatric) (principal); G47.61 Periodic limb movement disorder; R53.83 Other fatigue; K21.9 Gastro-esophageal reflux disease without esophagitis; E66.9 Obesity, unspecified; R06.83 Snoring; G47.00 Insomnia, unspecified; I10 Essential (primary) hypertension; E11.9 Type 2 diabetes mellitus without complications; R35.1 Nocturia; Z68.38 Body mass index [BMI] 38.0-38.9, adult | CPT/HCPCS: 95806 ==

== ENCOUNTER 2021-05-16 10:31 | Outpatient (CLI) | payer OTHER | END 2021-05-16 10:32 | disposition home or self-care (01) | LOC: BICULT 10:31 | PROVIDERS: ATTEND Family Medicine | DX: R74.8 Abnormal levels of other serum enzymes (principal); K76.0 Fatty (change of) liver, not elsewhere classified | CPT/HCPCS: 76705 ==

== ENCOUNTER 2022-02-04 17:30 | Outpatient (CLI) | payer OTHER | END 2022-02-04 17:31 | disposition home or self-care (01) | LOC: SLEEPLAB 17:30 | PROVIDERS: ATTEND Orthopaedic Surgery | DX: G47.33 Obstructive sleep apnea (adult) (pediatric) (principal); I10 Essential (primary) hypertension; R06.83 Snoring; G47.10 Hypersomnia, unspecified; E11.9 Type 2 diabetes mellitus without complications; G47.00 Insomnia, unspecified; E66.9 Obesity, unspecified; Z68.41 Body mass index [BMI] 40.0-44.9, adult | CPT/HCPCS: 95811 ==